=== PATIENT | male | born 1940 | race Caucasian/White ===

== ENCOUNTER 2019-10-31 18:20 | Emergency (ER) | payer OTHER, MEDICARE ==
[2019-10-31 18:35] VITALS: BP 132/70; PULSE 93
--- NOTE | 2019-10-31 19:14 | EDM.PDOC ---
ED HPI GENERAL MEDICAL PROBLEM - General Chief Complaint: Respiratory Problem Stated Complaint: SHORTNESS OF BREATH, HEART RATE HIGH. PER PT Time Seen by Provider: 10/31/19 19:14 Source of Information: Reports: Patient, RN, RN Notes Reviewed History Limitations: Reports: No Limitations - History of Present Illness INITIAL COMMENTS - FREE TEXT/NARRATIVE: Patient presents to ER with complaint of increased shortness of breath, increased cough with white sputum, chest pains on and off, feeling clammy, low blood pressure, and high heart rate. Patient states he was in the [facility] in [place] for testing a few days ago. Patient states he does have a history of COPD and CHF and is on 2 L of oxygen nasal cannula at all times at home. Patient states he has been checking his blood pressure and heart rate with a home monitor, and wonders if those numbers could be falls. Patient does state he has had some nausea but no vomiting, feeling of chills but unsure of fever, states he has had some diarrhea for the past 3 days on and off. Last bowel movement was 2 hours ago and was not loose. Patient denies any known exposure to COVID, but has not been tested and has been in the [facility] in [place]. Onset: Gradual - Related Data Allergies Allergy/AdvReac Type Severity Reaction Status Date / Time morphine Allergy Unknown unknown Verified 06/28/17 11:28 Home Meds: Home Meds Acetaminophen [Tylenol] 650 mg PO Q6H PRN 06/19/14 [History] Albuterol [Proventil Neb Soln] 2 puff INH ASDIRECTED PRN 06/19/14 [History] Aspirin [Halfprin] 81 mg PO DAILY 06/19/14 [History] Furosemide [Lasix] 20 mg PO BID 06/19/14 [History] Isosorbide Mononitrate [Isosorbide Mononitrate ER] 60 mg PO DAILY 06/19/14 [History] Theophylline [Theophylline Anhydrous] 300 mg PO BID 06/19/14 [History] Tiotropium [Spiriva HandiHaler] 18 mcg INH DAILY 06/19/14 [History] atorvaSTATin Calcium [Atorvastatin Calcium] 40 mg PO DAILY 06/19/14 [History] Budesonide/Formoterol Fumarate [Symbicort 160-4.5 Mcg Inhaler] 2 puff INH BID 06/28/17 [History] Latanoprost [Xalatan 0.005% Ophth Soln] 1 drop EYEBOTH BEDTIME 06/28/17 [History] Melatonin 2 cap PO BEDTIME 06/28/17 [History] polyethylene glycoL 3350 [Polyethylene Glycol 3350] 1 tsp PO DAILY PRN 06/28/17 [History] Past Medical History Cardiovascular History: Reports: Heart Failure, High Cholesterol, Hypertension Respiratory History: Reports: COPD Social & Family History - Family History Family Medical History: Noncontributory - Tobacco Use Smoking Status *Q: Current Some Day Smoker Years of Tobacco use: 40 Packs/Tins Daily: 1 Used Tobacco, but Quit: Yes Month/Year Tobacco Last Used: 2009 - Caffeine Use Caffeine Use: Reports: Coffee - Recreational Drug Use Recreational Drug Use: No ED ROS GENERAL - Review of Systems Review Of Systems: Comprehensive ROS is negative, except as noted in HPI. ED EXAM, GENERAL - Physical Exam Exam: See Below Exam Limited By: No Limitations General Appearance: Alert, WD/WN, No Apparent Distress Eye Exam: Bilateral Eye: EOMI, Normal Inspection Ears: Normal External Exam, Hearing Grossly Normal Nose: Normal Inspection Throat/Mouth: Normal Inspection, Normal Voice, No Airway Compromise Head: Atraumatic, Normocephalic Neck: Normal Inspection, Supple, Non-Tender, Full Range of Motion Respiratory/Chest: No Respiratory Distress, Decreased Breath Sounds (throughout), Crackles (bases bilaterally) Cardiovascular: Normal Peripheral Pulses, Regular Rate, Rhythm, No Edema, No Gallop, No JVD, No Murmur, No Rub. No: Tachycardia Peripheral Pulses: 2+: Radial (L), Radial (R) GI/Abdominal: Normal Bowel Sounds, Soft, No Organomegaly, No Distention, No Abnormal Bruit, No Mass, Pelvis Stable, Tender (diffuse) (Male) Exam: Deferred Rectal (Males) Exam: Deferred Back Exam: Normal Inspection, Full Range of Motion, NT Extremities: Normal Inspection, Normal Range of Motion, Non-Tender, Normal Capillary Refill, No Pedal Edema Neurological: Alert, Oriented, CN II-XII Intact, Normal Cognition, Normal Gait, Normal Reflexes, No Motor/Sensory Deficits Psychiatric: Normal Affect, Normal Mood Skin Exam: Warm, Dry, Intact, Normal Color, No Rash Lymphatic: No Adenopathy Course - Vital Signs Last Recorded V/S: Last Vital Signs Temp 97.9 F 08/12/20 18:30 Pulse 93 10/31/19 18:30 Resp 18 10/31/19 18:30 BP 132/70 10/31/19 18:30 Pulse Ox 99 10/31/19 18:30 - Orders/Labs/Meds Orders: Active Orders 24 hr Category Date Time Status EKG Documentation Completion [RC] STAT Care 10/31/19 19:08 Active CULTURE BLOOD [BC] Stat Lab 10/31/19 19:26 Received CULTURE BLOOD [BC] Stat Lab 10/31/19 19:30 Received Blood Culture x2 Reflex Set [OM.PC] Stat Oth 10/31/19 19:12 Ordered Labs: Laboratory Tests 10/31/19 10/31/19 10/31/19 Range/Units 19:26 19:26 19:26 WBC 7.4 (5.0-10.0) 10^3/uL RBC 4.63 (4.6-6.2) 10^6/uL Hgb 13.1 L D (14.0-18.0) g/dL Hct 39.4 L (40.0-54.0) % MCV 85.1 (80-100) fL MCH 28.3 (27.0-34.0) pg MCHC 33.2 (33.0-35.0) g/dL Plt Count 213 (150-450) 10^3/uL Neut % (Auto) 61.4 (42.2-75.2) % Lymph % (Auto) 25.1 (20.5-50.1) % [place] % (Auto) 10.7 H (2-8) % Eos % (Auto) 2.7 (1.0-3.0) % Baso % (Auto) 0.1 (0.0-1.0) % Sodium 140 (136-145) mmol/L Potassium 3.9 (3.5-5.1) mmol/L Chloride 100 (98-107) mmol/L Carbon Dioxide 36 H (21-32) mmol/L Anion Gap 7.9 (7-13) mEq/L BUN 22 H (7-18) mg/dL Creatinine 1.19 (0.70-1.30) mg/dL Est Cr Clr Drug Dosing 52.82 mL/min Estimated GFR (MDRD) 59 BUN/Creatinine Ratio 18.5 (No establ ref range) Glucose 100 H (74-99) mg/dL Lactic Acid 1.1 (0.4-2.0) mmol/L Calcium 9.4 (8.5-10.1) mg/dL Total Bilirubin 0.6 (0.2-1.0) mg/dL AST 22 (15-37) U/L ALT 21 (16-63) U/L Alkaline Phosphatase 101 (46-116) U/L Troponin I 0.022 (0.000-0.056) ng/mL B-Natriuretic Peptide 11 (0-100) pg/ml Total Protein 7.0 (6.4-8.2) g/dL Albumin 3.6 (3.4-5.0) g/dL Globulin 3.4 Albumin/Globulin Ratio 1.1 Urine Color (YELLOW) Urine Appearance (CLEAR) Urine pH (5.0-9.0) Ur Specific [place] (1.005-1.030) Urine Protein (NEGATIVE) Urine Glucose (UA) (NEGATIVE) Urine Ketones (NEGATIVE) Urine Occult Blood (NEGATIVE) Urine Nitrite (NEGATIVE) Urine Bilirubin (NEGATIVE) Urine Urobilinogen (0.2-1.0) mg/dL Ur Leukocyte Esterase (NEGATIVE) 10/31/19 Range/Units 20:29 WBC (5.0-10.0) 10^3/uL RBC (4.6-6.2) 10^6/uL Hgb (14.0-18.0) g/dL Hct (40.0-54.0) % MCV (80-100) fL MCH (27.0-34.0) pg MCHC (33.0-35.0) g/dL Plt Count (150-450) 10^3/uL Neut % (Auto) (42.2-75.2) % Lymph % (Auto) (20.5-50.1) % [place] % (Auto) (2-8) % Eos % (Auto) (1.0-3.0) % Baso % (Auto) (0.0-1.0) % Sodium (136-145) mmol/L Potassium (3.5-5.1) mmol/L Chloride (98-107) mmol/L Carbon Dioxide (21-32) mmol/L Anion Gap (7-13) mEq/L BUN (7-18) mg/dL Creatinine (0.70-1.30) mg/dL Est Cr Clr Drug Dosing mL/min Estimated GFR (MDRD) BUN/Creatinine Ratio (No establ ref range) Glucose (74-99) mg/dL Lactic Acid (0.4-2.0) mmol/L Calcium (8.5-10.1) mg/dL Total Bilirubin (0.2-1.0) mg/dL AST (15-37) U/L ALT (16-63) U/L Alkaline Phosphatase (46-116) U/L Troponin I (0.000-0.056) ng/mL B-Natriuretic Peptide (0-100) pg/ml Total Protein (6.4-8.2) g/dL Albumin (3.4-5.0) g/dL Globulin Albumin/Globulin Ratio Urine Color Yellow (YELLOW) Urine Appearance Slightly cloudy (CLEAR) Urine pH 6.0 (5.0-9.0) Ur Specific [place] 1.025 (1.005-1.030) Urine Protein Negative (NEGATIVE) Urine Glucose (UA) Negative (NEGATIVE) Urine Ketones Negative (NEGATIVE) Urine Occult Blood Negative (NEGATIVE) Urine Nitrite Negative (NEGATIVE) Urine Bilirubin Negative (NEGATIVE) Urine Urobilinogen 1.0 (0.2-1.0) mg/dL Ur Leukocyte Esterase Negative (NEGATIVE) - Radiology Interpretation Free Text/Narrative:: chest xray: PROCEDURE INFORMATION: Exam: XR Chest, 1 View Exam date and time: 10/31/2019 7:23 PM Age: 79 years old Clinical indication: Chest pain; Type not specified TECHNIQUE: Imaging protocol: XR of the chest Views: 1 view. COMPARISON: CR Chest 2V 05/13/2017 9:31 AM FINDINGS: Lungs: There are hazy ill-defined opacities in the lung bases but these may be chronic and due to superimposition of soft tissues as the appears similar to the prior exam. Pleural space: There are no pleural effusions present. Heart/Mediastinum: The heart is not enlarged. The pulmonary arteries are not enlarged. Bones/joints: Unremarkable IMPRESSION: Stable appearing ill-defined hazy opacities in the lung bases likely representing superimposition of shadows. Thank you for allowing us to participate in the care of your patient. Dictated and Authenticated by: Shahriar Kuhn MD 10/31/2019 7:35 PM Central Time ([place] & [place]) See rad report Departure - Departure Time of Disposition: 20:52 Disposition: Home, Self-Care 01 Condition: Fair Clinical Impression: Congestive heart failure Qualifiers: Heart failure type: systolic Heart failure chronicity: chronic Qualified Code (s): I50.22 - Chronic systolic (congestive) heart failure COPD (chronic obstructive pulmonary disease) Qualifiers: COPD type: unspecified COPD Qualified Code(s): J44.9 - Chronic obstructive pulmonary disease, unspecified - Discharge Information *PRESCRIPTION DRUG MONITORING PROGRAM REVIEWED*: No *COPY OF PRESCRIPTION DRUG MONITORING REPORT IN PATIENT SHMUEL: No Instructions: Heart Failure, Self Care, [id number], Eating Plan for Chronic Obstructive Pulmonary Disease Forms: ED Department Discharge Additional Instructions: Monitor Blood pressure and heart rate on your monitor at home If dizzy, sit down. Rise slowly to get your stability Call the [place] clinic tomorrow to discuss a change in your Blood pressure medications Follow up with the [place] Sepsis Event Note (ED) - Evaluation Sepsis Screening Result: No Definite Risk - Focused Exam Vital Signs: Vital Signs Temp Pulse Resp BP Pulse Ox 10/31/19 18:30 97.9 F 93 18 132/70 99 - My Orders Last 24 Hours: My Active Orders 10/31/19 19:08 EKG Documentation Completion [RC] STAT 10/31/19 19:12 Blood Culture x2 Reflex Set [OM.PC] Stat 10/31/19 19:26 CULTURE BLOOD [BC] Stat 10/31/19 19:30 CULTURE BLOOD [BC] Stat - Assessment/Plan Last 24 Hours: My Active Orders 10/31/19 19:08 EKG Documentation Completion [RC] STAT 10/31/19 19:12 Blood Culture x2 Reflex Set [OM.PC] Stat 10/31/19 19:26 CULTURE BLOOD [BC] Stat 10/31/19 19:30 CULTURE BLOOD [BC] Stat
--- NOTE | 2019-10-31 19:35 | CR ---
PROCEDURE INFORMATION: Exam: XR Chest, 1 View Exam date and time: 10/31/2019 7:23 PM Age: 79 years old Clinical indication: Chest pain; Type not specified TECHNIQUE: Imaging protocol: XR of the chest Views: 1 view. COMPARISON: CR Chest 2V 05/13/2017 9:31 AM FINDINGS: Lungs: There are hazy ill-defined opacities in the lung bases but these may be chronic and due to superimposition of soft tissues as the appears similar to the prior exam. Pleural space: There are no pleural effusions present. Heart/Mediastinum: The heart is not enlarged. The pulmonary arteries are not enlarged. Bones/joints: Unremarkable IMPRESSION: Stable appearing ill-defined hazy opacities in the lung bases likely representing superimposition of shadows.
[2019-10-31 19:57] LABS: ANION GAP 7.9 mEq/L (7-13)
== END 2019-10-31 20:55 | disposition home or self-care (01) ==
LOC: DL.ED 18:20
DX: I11.0 Hypertensive heart disease with heart failure (principal); I50.22 Chronic systolic (congestive) heart failure; J44.9 Chronic obstructive pulmonary disease, unspecified; E78.00 Pure hypercholesterolemia, unspecified; F17.210 Nicotine dependence, cigarettes, uncomplicated; Z79.82 Long term (current) use of aspirin; Z79.899 Other long term (current) drug therapy; Z88.5 Allergy status to narcotic agent
CPT/HCPCS: 36415; 71045; 80053; 81003; 83605; 83880; 84484; 85025; 87040; 93005; 99285-25

== ENCOUNTER 2019-11-06 16:18 | Emergency (ER) | payer OTHER, MEDICARE ==
[2019-11-06 16:35] VITALS: BP 132/46; PULSE 56
--- NOTE | 2019-11-06 17:03 | EDM.PDOC ---
ED HPI GENERAL MEDICAL PROBLEM - General Chief Complaint: Gastrointestinal Problem Stated Complaint: UPSET [facility] HOME NURSE RECOMENDED ER VISIT Time Seen by Provider: 11/06/19 16:45 Source of Information: Reports: Patient History Limitations: Reports: No Limitations - History of Present Illness INITIAL COMMENTS - FREE TEXT/NARRATIVE: This 79 yo male patient reports to the ED with diffuse abdominal pain, nausea, lack of appetite and dark stools. The patient reports he has been nauseated for the past week and had a reduced appetite over the past week. The patient reports the dark stools have been for the past 2 days. The patient reports [facility] has not followed-up since his last visit in the ED. Duration: Week(s):, Constant, Getting Worse Location: Reports: Abdomen Quality: Reports: Other Severity: Moderate Improves with: Reports: None Worsens with: Reports: None Context: Reports: Other Associated Symptoms: Reports: Nausea/Vomiting, Other (Dark stools) - Related Data Allergies Allergy/AdvReac Type Severity Reaction Status Date / Time morphine Allergy Unknown unknown Verified 11/06/19 16:27 Home Meds: Home Meds Acetaminophen [Tylenol] 650 mg PO Q6H PRN 06/19/14 [History] Albuterol [Proventil Neb Soln] 2 puff INH ASDIRECTED PRN 06/19/14 [History] Aspirin [Halfprin] 81 mg PO DAILY 06/19/14 [History] Furosemide [Lasix] 20 mg PO ASDIRECTED 06/19/14 [History] Isosorbide Mononitrate [Isosorbide Mononitrate ER] 60 mg PO DAILY 06/19/14 [History] Theophylline [Theophylline Anhydrous] 300 mg PO BID 06/19/14 [History] Tiotropium [Spiriva HandiHaler] 18 mcg INH DAILY 06/19/14 [History] atorvaSTATin Calcium [Atorvastatin Calcium] 40 mg PO DAILY 06/19/14 [History] Budesonide/Formoterol Fumarate [Symbicort 160-4.5 Mcg Inhaler] 2 puff INH BID 06/28/17 [History] Latanoprost [Xalatan 0.005% Ophth Soln] 1 drop EYEBOTH BEDTIME 06/28/17 [History] Melatonin 3 cap PO BEDTIME 06/28/17 [History] Albuterol [Ventolin HFA] 2 puff INH Q6H PRN 11/06/19 [History] Cetirizine HCl [Zyrtec] 5 mg PO DAILY 11/06/19 [History] Doxycycline Hyclate 1 cap PO BID PRN 11/06/19 [History] Sennosides/Docusate Sodium [Docusate Sodium-Sennosides Tab] 1 tab PO BID PRN 11/06/19 [History] predniSONE [Prednisone] 40 mg PO DAILY PRN 11/06/19 [History] traZODone HCl [Trazodone HCl] 50 mg PO BEDTIME 11/06/19 [History] Past Medical History Cardiovascular History: Reports: Heart Failure, High Cholesterol, Hypertension Respiratory History: Reports: COPD Social & Family History - Family History Family Medical History: Noncontributory - Caffeine Use Caffeine Use: Reports: Coffee ED ROS GENERAL - Review of Systems Review Of Systems: Comprehensive ROS is negative, except as noted in HPI. ED EXAM, GI/ABD - Physical Exam Exam: See Below Exam Limited By: No Limitations General Appearance: Alert, WD/WN, Mild Distress Eyes: Bilateral: Normal Appearance, EOMI Ears: Normal External Exam, Normal Canal, Hearing Grossly Normal, Normal TMs Nose: Normal Inspection, Normal Mucosa, No Blood Throat/Mouth: Normal Inspection, Normal Lips, Normal Teeth, Normal Gums, Normal Oropharynx, Normal Voice, No Airway Compromise Head: Atraumatic, Normocephalic Neck: Normal Inspection, Supple, Non-Tender, Full Range of Motion Respiratory/Chest: No Respiratory Distress, Lungs Clear, Normal Breath Sounds, No Accessory Muscle Use, Chest Non-Tender Cardiovascular: Normal Peripheral Pulses, No Edema, No Gallop, No JVD, No Murmur, No Rub, Bradycardia GI/Abdominal Exam: Normal Bowel Sounds, No Organomegaly, No Distention, No Abnormal Bruit, No Mass, Pelvis Stable, Tender (diffuse mild tenderness) (Male) Exam: Deferred Back Exam: Normal Inspection, Full Range of Motion, NT Extremities: Normal Inspection, Normal Range of Motion, Non-Tender, Normal Capillary Refill, No Pedal Edema Neurological: Alert Psychiatric: Normal Affect, Normal Mood Skin Exam: Warm, Dry, Intact, Normal Color, No Rash Lymphatic: No Adenopathy Course - Vital Signs Last Recorded V/S: Last Vital Signs Temp 36.4 C 11/06/19 16:33 Pulse 56 L 08/18/20 16:33 Resp 16 11/06/19 16:33 BP 132/46 L 11/06/19 16:33 Pulse Ox 100 11/06/19 16:33 - Orders/Labs/Meds Orders: Active Orders 24 hr Category Date Time Status EKG Documentation Completion [RC] STAT Care 11/06/19 16:46 Active CULTURE BLOOD [BC] Stat Lab 11/06/19 16:52 Received Labs: Laboratory Tests 11/06/19 11/06/19 11/06/19 Range/Units 16:52 16:52 16:52 WBC 7.4 (5.0-10.0) 10^3/uL RBC 4.31 L (4.6-6.2) 10^6/uL Hgb 12.1 L (14.0-18.0) g/dL Hct 36.3 L (40.0-54.0) % MCV 84.2 (80-100) fL MCH 28.1 (27.0-34.0) pg MCHC 33.3 (33.0-35.0) g/dL Plt Count 213 (150-450) 10^3/uL Neut % (Auto) 59.4 (42.2-75.2) % Lymph % (Auto) 28.8 (20.5-50.1) % [place] % (Auto) 9.4 H (2-8) % Eos % (Auto) 2.3 (1.0-3.0) % Baso % (Auto) 0.1 (0.0-1.0) % Sodium 139 (136-145) mmol/L Potassium 3.5 (3.5-5.1) mmol/L Chloride 100 (98-107) mmol/L Carbon Dioxide 32 (21-32) mmol/L Anion Gap 10.5 (7-13) mEq/L BUN 21 H (7-18) mg/dL Creatinine 1.18 (0.70-1.30) mg/dL Est Cr Clr Drug Dosing 53.27 mL/min Estimated GFR (MDRD) 60 BUN/Creatinine Ratio 17.8 (No establ ref range) Glucose 86 (74-99) mg/dL Lactic Acid 1.6 (0.4-2.0) mmol/L Calcium 8.6 (8.5-10.1) mg/dL Total Bilirubin 0.8 (0.2-1.0) mg/dL AST 19 (15-37) U/L ALT 16 (16-63) U/L Alkaline Phosphatase 96 (46-116) U/L Troponin I < 0.017 (0.000-0.056) ng/mL Total Protein 6.5 (6.4-8.2) g/dL Albumin 3.3 L (3.4-5.0) g/dL Globulin 3.2 Albumin/Globulin Ratio 1.03 Meds: Medications Discontinued Medications Generic Name Dose Route Start Last Admin Trade Name Freq PRN Reason Stop Dose Admin Iopamidol 100 ml 11/06/19 17:38 11/06/19 18:12 Isovue-300 (61%) IVPUSH 11/06/19 17:39 75 ml ONETIME ONE Administration Departure - Departure Time of Disposition: 18:37 Disposition: Home, Self-Care 01 Condition: Fair Clinical Impression: Gastroenteritis - Discharge Information *PRESCRIPTION DRUG MONITORING PROGRAM REVIEWED*: Not Applicable *COPY OF PRESCRIPTION DRUG MONITORING REPORT IN PATIENT SHMUEL: Not Applicable Instructions: Viral Gastroenteritis, Adult, [id number] Forms: ED Department Discharge Care Plan Goals: The patient was advised of the examination, CT and lab results during the visit. The patient was encouraged to stick to a BRAT diet (bananas, rice, applesauce and toast) with small frequent sips of fluid. If the patient has any additional symptoms or concerns, the patient should either return to the emergency department or follow-up with his primary care facility. Sepsis Event Note (ED) - Evaluation Sepsis Screening Result: No Definite Risk - Focused Exam Vital Signs: Vital Signs Temp Pulse Resp BP Pulse Ox 11/06/19 16:33 36.4 C 56 L 16 132/46 L 100 - My Orders Last 24 Hours: My Active Orders 11/06/19 16:46 EKG Documentation Completion [RC] STAT 11/06/19 16:52 CULTURE BLOOD [BC] Stat - Assessment/Plan Last 24 Hours: My Active Orders 11/06/19 16:46 EKG Documentation Completion [RC] STAT 11/06/19 16:52 CULTURE BLOOD [BC] Stat
[2019-11-06 17:26] LABS: ANION GAP 10.5 mEq/L (7-13); CHLORIDE,CL 100 mmol/L (98-107); SODIUM,NA 139 mmol/L (136-145)
[2019-11-06] MEDS ORDERED: Iopamidol 612 MG/ML 100 ML Bottle IVPUSH ONE (17:38)
--- NOTE | 2019-11-06 18:19 | CT ---
PROCEDURE INFORMATION: Exam: CT Abdomen And Pelvis With Contrast Exam date and time: 11/06/2019 5:53 PM Age: 79 years old Clinical indication: Abdominal pain; Additional info: Abdominal pain, loss of appetite TECHNIQUE: Imaging protocol: Computed tomography of the abdomen and pelvis with intravenous contrast. Radiation optimization: All CT scans at this facility use at least one of these dose optimization techniques: automated exposure control; mA and/or kV adjustment per patient size (includes targeted exams where dose is matched to clinical indication); or iterative reconstruction. Contrast material: [id number]; Contrast volume: 75 ml; Contrast route: INTRAVENOUS (IV); COMPARISON: No relevant prior studies available. FINDINGS: Liver: Normal. No mass. Gallbladder and bile ducts: Normal. No calcified stones. No ductal dilation. Pancreas: Normal. No ductal dilation. Spleen: Normal. No splenomegaly. Adrenals: Normal. No mass. Kidneys and ureters: Bilateral renal cysts are present, requiring no further evaluation, as large as 2.9 cm. Nonobstructing renal calcifications present bilaterally. Stomach and bowel: Mild diverticulosis is present in the distal colon. Appendix: No evidence of appendicitis. Intraperitoneal space: Normal. No significant fluid collection. Vasculature: The vasculature demonstrates diffuse mild atherosclerotic calcification. Lymph nodes: Unremarkable. No enlarged lymph nodes. Bladder: Small calcifications noted within the inferior aspect of the bladder on the right. There is mild bladder wall thickening consistent with incomplete distension, chronic outflow obstruction, or cystitis. Reproductive: The prostate demonstrates mild nonspecific enlargement. The seminal vesicles are normal. Bones/joints: The lumbar spine demonstrates mild degenerative changes at multiple levels. Soft tissues: There is a fat-containing umbilical hernia. IMPRESSION: 1. Small calcifications noted within the inferior aspect of the bladder on the right. 2. There is mild bladder wall thickening consistent with incomplete distension, chronic outflow obstruction, or cystitis. 3. Mild diverticulosis is present in the distal colon. 4. Bilateral renal cysts are present, requiring no further evaluation, as large as 2.9 cm.
== END 2019-11-06 18:48 | disposition home or self-care (01) ==
LOC: DL.ED 16:18
DX: K52.9 Noninfective gastroenteritis and colitis, unspecified (principal); I11.0 Hypertensive heart disease with heart failure; I50.9 Heart failure, unspecified; E78.00 Pure hypercholesterolemia, unspecified; J44.9 Chronic obstructive pulmonary disease, unspecified; Z79.82 Long term (current) use of aspirin; Z79.899 Other long term (current) drug therapy; Z88.5 Allergy status to narcotic agent
CPT/HCPCS: 36415; 74177; 80053; 82272; 83605; 84484; 85025; 87040; 93005; 99284; Q9967

== ENCOUNTER 2020-02-20 14:21 | Emergency (ER) | payer OTHER, MEDICARE ==
[2020-02-20 14:39] VITALS: BP 141/58; PULSE 58
--- NOTE | 2020-02-20 14:50 | EDM.PDOC ---
ED HPI GENERAL MEDICAL PROBLEM - General Chief Complaint: Respiratory Problem Stated Complaint: RESPITORY PROBLEMS Time Seen by Provider: 02/20/20 14:40 Source of Information: Reports: Patient, RN, RN Notes Reviewed History Limitations: Reports: No Limitations - History of Present Illness INITIAL COMMENTS - FREE TEXT/NARRATIVE: Patient presents to the ED from the [facility] with complaints of worsening shortness of breath. The patient does report a history of COPD and is on 2L of O2 via NC at baseline. He is not requiring an increase in his O2 requirements. He is currently on a pulmonary burst of Prednisone 40mg via his primary care provider for a COPD exacerbation, he is on day four. He denies a history of COVID infection or close contact with an individual with a known active COVID infection. He denies fever, shaking chills, headache, chest pain/pressure, palpitations, dyspepsia, nausea, vomiting, diarrhea, or abdominal pain. He is a former smoker with a quit date in 2009. He denies alcohol or recreational drug use. - Related Data Allergies Allergy/AdvReac Type Severity Reaction Status Date / Time morphine Allergy Unknown unknown Verified 11/06/19 16:27 Home Meds: Home Meds Acetaminophen [Tylenol] 650 mg PO Q6H PRN 06/19/14 [History] Albuterol [Proventil Neb Soln] 2 puff INH ASDIRECTED PRN 06/19/14 [History] Aspirin [Halfprin] 81 mg PO DAILY 06/19/14 [History] Furosemide [Lasix] 20 mg PO ASDIRECTED 06/19/14 [History] Isosorbide Mononitrate [Isosorbide Mononitrate ER] 60 mg PO DAILY 06/19/14 [History] Theophylline [Theophylline Anhydrous] 300 mg PO BID 06/19/14 [History] Tiotropium [Spiriva HandiHaler] 18 mcg INH DAILY 06/19/14 [History] atorvaSTATin Calcium [Atorvastatin Calcium] 40 mg PO DAILY 06/19/14 [History] Budesonide/Formoterol Fumarate [Symbicort 160-4.5 Mcg Inhaler] 2 puff INH BID 06/28/17 [History] Latanoprost [Xalatan 0.005% Ophth Soln] 1 drop EYEBOTH BEDTIME 06/28/17 [History] Melatonin 3 cap PO BEDTIME 04/10/18 [History] Albuterol [Ventolin HFA] 2 puff INH Q6H PRN 11/06/19 [History] Cetirizine HCl [Zyrtec] 5 mg PO DAILY 11/06/19 [History] Doxycycline Hyclate 1 cap PO BID PRN 11/06/19 [History] Sennosides/Docusate Sodium [Docusate Sodium-Sennosides Tab] 1 tab PO BID PRN 11/06/19 [History] predniSONE [Prednisone] 40 mg PO DAILY PRN 11/06/19 [History] traZODone HCl [Trazodone HCl] 50 mg PO BEDTIME 11/06/19 [History] Past Medical History HEENT History: Reports: Impaired Vision Other HEENT History: wears glasses Cardiovascular History: Reports: Heart Failure, High Cholesterol, Hypertension Respiratory History: Reports: COPD Other Respiratory History: Home O2 Social & Family History - Family History Family Medical History: No Pertinent Family History - Tobacco Use Tobacco Use Status *Q: Former Tobacco User Used Tobacco, but Quit: Yes Month/Year Tobacco Last Used: 2009 - Caffeine Use Caffeine Use: Reports: Coffee - Recreational Drug Use Recreational Drug Use: No ED ROS GENERAL - Review of Systems Review Of Systems: Comprehensive ROS is negative, except as noted in HPI. ED EXAM, GENERAL - Physical Exam Exam: See Below Exam Limited By: No Limitations General Appearance: Alert, WD/WN, No Apparent Distress Eye Exam: Bilateral Eye: EOMI, Normal Inspection, PERRL Nose: Normal Inspection, Normal Mucosa. No: Nasal Tenderness, Nasal Swelling, Nasal Drainage Throat/Mouth: Normal Inspection, Normal Lips, Normal Voice, No Airway Compromise. No: Normal Oropharynx (Dry mucous membranes) Head: Atraumatic, Normocephalic Neck: Normal Inspection, Supple, Non-Tender, Full Range of Motion. No: Lymphadenopathy (L), Lymphadenopathy (R) Respiratory/Chest: Normal Breath Sounds, Chest Non-Tender, Rhonchi (Throughout), Wheezing (Inspiratory and expiratory to bilateral upper lobes), Accessory Muscle Use Cardiovascular: No Edema, No Gallop, No JVD, No Murmur, No Rub, Bradycardia Peripheral Pulses: 2+: Radial (L), Radial (R), Dorsalis Pedis (L), Dorsalis Pedis (R) GI/Abdominal: Normal Bowel Sounds, Soft, Non-Tender, No Distention, No Mass, Pelvis Stable (Male) Exam: Deferred Rectal (Males) Exam: Deferred Back Exam: Normal Inspection, Full Range of Motion. No: CVA Tenderness (L), CVA Tenderness (R) Extremities: Normal Inspection, Normal Range of Motion, Non-Tender, No Pedal Edema, Normal Capillary Refill. No: Mottled, Pallor Neurological: Alert, Oriented, CN II-XII Intact, Normal Cognition, Normal Gait, No Motor/Sensory Deficits Psychiatric: Normal Affect, Normal Mood Skin Exam: Warm, Dry, Intact, Normal Color, No Rash. No: Ecchymosis, Erythema, Mottled, Pallor, Petechiae #1 Interpretation EKG Date: 02/21/20 Time: 15:20 Rhythm: Other (Sinus Nacho) Rate (Beats/Min): 49 [place]: Normal P-Wave: Present QRS: Normal ST-T: Normal QT: Normal Comparison: No Change EKG Interpretation Comments: Sinus Bradycardia Course - Vital Signs Last Recorded V/S: Last Vital Signs Temp 97.6 F 02/20/20 14:30 Pulse 58 L 02/20/20 14:30 Resp 18 02/20/20 14:30 BP 141/58 H 02/20/20 14:30 Pulse Ox 99 02/20/20 14:30 - Orders/Labs/Meds Labs: Laboratory Tests 02/20/20 02/20/20 02/20/20 Range/Units 15:37 15:37 15:37 WBC 11.5 H (5.0-10.0) 10^3/uL RBC 4.46 L (4.6-6.2) 10^6/uL Hgb 12.7 L (14.0-18.0) g/dL Hct 40.3 (40.0-54.0) % MCV 90.4 D (80-100) fL MCH 28.5 (27.0-34.0) pg MCHC 31.5 L (33.0-35.0) g/dL Plt Count 175 (150-450) 10^3/uL Neut % (Auto) 85.7 H (42.2-75.2) % Lymph % (Auto) 11.4 L (20.5-50.1) % [place] % (Auto) 2.1 (2-8) % Eos % (Auto) 0.7 L (1.0-3.0) % Baso % (Auto) 0.1 (0.0-1.0) % Sodium 144 (136-145) mmol/L Potassium 4.3 (3.5-5.1) mmol/L Chloride 103 (98-107) mmol/L Carbon Dioxide 38 H (21-32) mmol/L Anion Gap 7.3 (7-13) mEq/L BUN 20 H (7-18) mg/dL Creatinine 0.97 (0.70-1.30) mg/dL Est Cr Clr Drug Dosing 62.76 mL/min Estimated GFR (MDRD) > 60 BUN/Creatinine Ratio 20.6 (No establ ref range) Glucose 125 H (74-99) mg/dL Lactic Acid 1.4 (0.4-2.0) mmol/L Calcium 8.9 (8.5-10.1) mg/dL Total Bilirubin 0.3 (0.2-1.0) mg/dL AST 34 (15-37) U/L ALT 46 (16-63) U/L Alkaline Phosphatase 71 (46-116) U/L Troponin I 0.024 (0.000-0.056) ng/mL B-Natriuretic Peptide 72 (0-100) pg/ml Total Protein 6.4 (6.4-8.2) g/dL Albumin 3.3 L (3.4-5.0) g/dL Globulin 3.1 Albumin/Globulin Ratio 1.06 SARS CoV-2 RNA Rapid BG (NEGATIVE) 02/20/20 Range/Units 15:41 WBC (5.0-10.0) 10^3/uL RBC (4.6-6.2) 10^6/uL Hgb (14.0-18.0) g/dL Hct (40.0-54.0) % MCV (80-100) fL MCH (27.0-34.0) pg MCHC (33.0-35.0) g/dL Plt Count (150-450) 10^3/uL Neut % (Auto) (42.2-75.2) % Lymph % (Auto) (20.5-50.1) % [place] % (Auto) (2-8) % Eos % (Auto) (1.0-3.0) % Baso % (Auto) (0.0-1.0) % Sodium (136-145) mmol/L Potassium (3.5-5.1) mmol/L Chloride (98-107) mmol/L Carbon Dioxide (21-32) mmol/L Anion Gap (7-13) mEq/L BUN (7-18) mg/dL Creatinine (0.70-1.30) mg/dL Est Cr Clr Drug Dosing mL/min Estimated GFR (MDRD) BUN/Creatinine Ratio (No establ ref range) Glucose (74-99) mg/dL Lactic Acid (0.4-2.0) mmol/L Calcium (8.5-10.1) mg/dL Total Bilirubin (0.2-1.0) mg/dL AST (15-37) U/L ALT (16-63) U/L Alkaline Phosphatase (46-116) U/L Troponin I (0.000-0.056) ng/mL B-Natriuretic Peptide (0-100) pg/ml Total Protein (6.4-8.2) g/dL Albumin (3.4-5.0) g/dL Globulin Albumin/Globulin Ratio SARS CoV-2 RNA Rapid BG Negative (NEGATIVE) Meds: Medications Discontinued Medications Generic Name Dose Route Start Last Admin Trade Name Freq PRN Reason Stop Dose Admin Levofloxacin 500 mg 02/20/20 17:19 02/20/20 17:24 Levaquin PO 02/20/20 17:20 500 mg ONETIME ONE Administration - Re-Assessments/Exams Free Text/Narrative Re-Assessment/Exam: 02/20/20 COVID screen is negative today. CXR reveals COPD with no signs of pneumonia. WBC slightly elevated at 11.5 Will continue to treat COPD exacerbation with previously prescribed Prednisone 40mg; will start patient of Levaquin 500mg x5 days. Patient given first dose here today. Patient instructed to follow up with primary care provider in 3-5 days, or with continued worsening shortness of breath or chest pain. Patient verbalized understanding and agreement with the plan of care. Departure - Departure Time of Disposition: 17:19 Disposition: Home, Self-Care 01 Condition: Good Clinical Impression: COPD exacerbation - Discharge Information *PRESCRIPTION DRUG MONITORING PROGRAM REVIEWED*: Not Applicable *COPY OF PRESCRIPTION DRUG MONITORING REPORT IN PATIENT SHMUEL: Not Applicable Instructions: Chronic Obstructive Pulmonary Disease, [id number] Referrals: PCP,Unobpepito [Primary Care Provider] - Forms: ED Department Discharge Additional Instructions: Rx: Levaquin Take all of your antibiotic until it is gone. Follow up with your primary care provider in 3-5 days, or sooner with any worsening shortness of breath or chest pain. Sepsis Event Note (ED) - Evaluation Sepsis Screening Result: No Definite Risk
[2020-02-20 16:17] LABS: ANION GAP 7.3 mEq/L (7-13); CHLORIDE,CL 103 mmol/L (98-107); SODIUM,NA 144 mmol/L (136-145)
--- NOTE | 2020-02-20 16:37 | CR ---
EXAMINATION: Chest 2V SEX: Male AGE: 79 years CLINICAL HISTORY: 79-year-old male with COPD, elevated WBC, and now "worsening" shortness of breath. Comparison chest film 31 October 2019. Interpretation: 1. Restrictive airway disease with severe flattening of the hemidiaphragms and prominent proximal pulmonary artery segments. No discrete cystic or bullous lesions. 2. 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 3. Normal cardiac silhouette. No new pulmonary vascular congestion, cephalization of flow, alveolar edema or dependent pleural fluid accumulation (effusions). Dense atheromatous calcifications arch aorta. 4. No new lung mass, hilar lymphadenopathy or focal lobar infiltrate/atelectasis. 5. No focal lobar pneumonia or peripheral "groundglass" lung densities. CONCLUSION: COPD. No acute new cardiopulmonary abnormality.
[2020-02-20] MEDS ORDERED: Levofloxacin 500 MG Tab PO ONE (17:19)
== END 2020-02-20 17:29 | disposition home or self-care (01) ==
LOC: DL.ED 14:21
DX: J44.1 Chronic obstructive pulmonary disease with (acute) exacerbation (principal); R00.1 Bradycardia, unspecified; I11.0 Hypertensive heart disease with heart failure; I50.9 Heart failure, unspecified; E78.00 Pure hypercholesterolemia, unspecified; Z87.891 Personal history of nicotine dependence; Z20.828 Contact with and (suspected) exposure to other viral communicable diseases; Z88.5 Allergy status to narcotic agent; Z79.82 Long term (current) use of aspirin; Z79.899 Other long term (current) drug therapy
CPT/HCPCS: 36415; 71046; 80053; 83605; 83880; 84484; 85025; 93005; 99285-25; A9270-GY; U0002

== ENCOUNTER 2020-03-02 15:54 | Emergency (ER) | payer OTHER, MEDICARE ==
[2020-03-02 16:34] LABS: ANION GAP 0.9 mEq/L (7-13); CHLORIDE,CL 100 mmol/L (98-107); SODIUM,NA 140 mmol/L (136-145)
--- NOTE | 2020-03-02 16:38 | CR ---
PROCEDURE INFORMATION: Exam: XR Chest, 1 View Exam date and time: 03/02/2020 4:30 PM Age: 79 years old Clinical indication: Other: Chest pain TECHNIQUE: Imaging protocol: XR of the chest Views: 1 view. COMPARISON: CR Chest 2V 02/20/2020 4:12 PM FINDINGS: Lungs: There is mild increase in interstitial markings within the lungs. This is nonspecific. No pneumonia or pulmonary edema is present. Pleural space: Small bilateral pleural effusions are present. There is no pneumothorax. Heart/Mediastinum: Unremarkable. No cardiomegaly. Bones/joints: Unremarkable. IMPRESSION: Chronic appearing interstitial change with small bilateral pleural effusions no definite pneumonia or pulmonary edema.
--- NOTE | 2020-03-02 17:12 | EDM.PDOC ---
Scribed by Elzbieta Ortega 03/02/20 1712 for Darline Fam NP <Darline Fam - Last Filed: 03/03/20 09:53> ED HPI GENERAL MEDICAL PROBLEM - General Chief Complaint: Chest Pain Stated Complaint: CHEST PAINS Time Seen by Provider: 03/02/20 16:40 Source of Information: Reports: Patient, RN, RN Notes Reviewed History Limitations: Reports: No Limitations - History of Present Illness INITIAL COMMENTS - FREE TEXT/NARRATIVE: Patient is a 79-year-old male who presents to the ER with complaint of chest pain. Patient was seen in the ER on February 20, 2020 with increased shortness of breath. States he is on 3 liter nasal cannula at baseline. At last [facility] visit patient was COVID negative. Patient states pain has been intermittent today. He has not had pain for over an hour. It started about 10 A.M. today--several episodes today. History of COPD. He has positive chills. No fever. 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 Onset: Today Duration: Constant Location: Reports: Chest Quality: Reports: Ache Severity: Moderate Improves with: Reports: None Worsens with: Reports: None Associated Symptoms: Reports: No Other Symptoms - Related Data Allergies Allergy/AdvReac Type Severity Reaction Status Date / Time morphine Allergy Unknown unknown Verified 11/06/19 16:27 Home Meds: Home Meds Acetaminophen [Tylenol] 650 mg PO Q6H PRN 06/19/14 [History] Albuterol [Proventil Neb Soln] 2 puff INH ASDIRECTED PRN 06/19/14 [History] Aspirin [Halfprin] 81 mg PO DAILY 06/19/14 [History] Furosemide [Lasix] 20 mg PO ASDIRECTED 06/19/14 [History] Theophylline [Theophylline Anhydrous] 300 mg PO BID 06/19/14 [History] Tiotropium [Spiriva HandiHaler] 18 mcg INH DAILY 06/19/14 [History] atorvaSTATin Calcium [Atorvastatin Calcium] 40 mg PO BEDTIME 06/19/14 [History] Budesonide/Formoterol Fumarate [Symbicort 160-4.5 Mcg Inhaler] 2 puff INH BID 06/28/17 [History] Latanoprost [Xalatan 0.005% Ophth Soln] 1 drop EYEBOTH BEDTIME 06/28/17 [History] Melatonin 3 cap PO BEDTIME 06/28/17 [History] Albuterol [Ventolin HFA] 2 puff INH Q6H PRN 11/06/19 [History] Cetirizine HCl [Zyrtec] 5 mg PO DAILY 11/06/19 [History] Doxycycline Hyclate 1 cap PO BID PRN 11/06/19 [History] Sennosides/Docusate Sodium [Docusate Sodium-Sennosides Tab] 1 tab PO BID PRN 11/06/19 [History] predniSONE [Prednisone] 40 mg PO DAILY PRN 11/06/19 [History] traZODone HCl [Trazodone HCl] 50 mg PO BEDTIME 11/06/19 [History] Past Medical History HEENT History: Reports: Impaired Vision Other HEENT History: wears glasses Cardiovascular History: Reports: Heart Failure, High Cholesterol, Hypertension Respiratory History: Reports: COPD Other Respiratory History: Home O2 Social & Family History - Family History Family Medical History: No Pertinent Family History - Caffeine Use Caffeine Use: Reports: Coffee ED ROS GENERAL - Review of Systems Review Of Systems: Comprehensive ROS is negative, except as noted in HPI. ED EXAM, GENERAL - Physical Exam Exam: See Below Exam Limited By: No Limitations General Appearance: Alert, WD/WN, No Apparent Distress Eye Exam: Bilateral Eye: EOMI, Normal Inspection Ears: Normal External Exam, Hearing Grossly Normal Nose: Normal Inspection Throat/Mouth: Normal Inspection, Normal Voice, No Airway Compromise Head: Atraumatic, Normocephalic Neck: Normal Inspection, Supple, Non-Tender, Full Range of Motion Respiratory/Chest: Decreased Breath Sounds, Crackles (throughout), Other (3L/NC baseline) Cardiovascular: Normal Peripheral Pulses, Regular Rate, Rhythm, No Edema, No Gallop, No JVD, No Murmur, No Rub Peripheral Pulses: 2+: Radial (L), Radial (R) GI/Abdominal: Normal Bowel Sounds, Soft, Non-Tender (Male) Exam: Deferred Rectal (Males) Exam: Deferred Back Exam: Normal Inspection, Full Range of Motion, NT Extremities: Normal Inspection, Normal Range of Motion, Non-Tender, Normal Capillary Refill, No Pedal Edema Neurological: Alert, Oriented, CN II-XII Intact, Normal Cognition, Normal Gait, Normal Reflexes, No Motor/Sensory Deficits Psychiatric: Normal Affect, Normal Mood Skin Exam: Warm, Dry, Intact, Normal Color, No Rash Lymphatic: No Adenopathy Course - Radiology Interpretation Free Text/Narrative:: Chest xray: PROCEDURE INFORMATION: Exam: XR Chest, 1 View Exam date and time: 03/02/2020 4:30 PM Age: 79 years old Clinical indication: Other: Chest pain TECHNIQUE: Imaging protocol: XR of the chest Views: 1 view. COMPARISON: CR Chest 2V 02/20/2020 4:12 PM FINDINGS: Lungs: There is mild increase in interstitial markings within the lungs. This is nonspecific. No pneumonia or pulmonary edema is present. Pleural space: Small bilateral pleural effusions are present. There is no pneumothorax. Heart/Mediastinum: Unremarkable. No cardiomegaly. Bones/joints: Unremarkable. IMPRESSION: Chronic appearing interstitial change with small bilateral pleural effusions no definite pneumonia or pulmonary edema. Thank you for allowing us to participate in the care of your patient. Dictated and Authenticated by: Jatin Gardner MD 03/02/2020 4:38 PM Central Time ([place] & [place]) See rad report - Re-Assessments/Exams Free Text/Narrative Re-Assessment/Exam: 03/02/20 17:08 According to the Adjusted D-Dimer scale, the patient's age and co-morbidity can contribute to an elevated D-Dimer. Patient is 79, his adjusted D-dimer can be as high as 780. Patient will be monitored as an extended ER on the medical floor. He will have recheck Troponin and EKG at 1999. Patient will be discharged at that time as long as everything returns the same. Pt encouraged to follow up with his primary care provider for the chest pain and possible prescription for Nitroglycerin. Departure - Departure Disposition: Home, Self-Care 01 Clinical Impression: COPD (chronic obstructive pulmonary disease) Qualifiers: COPD type: unspecified COPD Qualified Code(s): J44.9 - Chronic obstructive pulmonary disease, unspecified Instructions: Chronic Obstructive Pulmonary Disease Exacerbation, [id number], Nonspecific Chest Pain, Adult, [id number] Referrals: PCP,None [Primary Care Provider] - Forms: ED Department Discharge Additional Instructions: light bland diet clinic recheck this week, urgent follow up if fever, cough difficulty breathing or severe pain continue home medications doxycycline 100mg one twice daily for one week <Ghada Nicholas - Last Filed: 03/05/20 06:38> Course - Vital Signs Last Recorded V/S: Last Vital Signs Temp 98.3 F 03/02/20 20:09 Pulse 57 L 03/02/20 20:09 Resp 20 03/02/20 20:09 BP 97/53 L 03/02/20 20:09 Pulse Ox 100 03/02/20 20:09 - Orders/Labs/Meds Labs: Laboratory Tests 03/02/20 03/02/20 03/02/20 Range/Units 16:06 16:06 16:06 WBC 15.2 H (5.0-10.0) 10^3/uL RBC 4.87 (4.6-6.2) 10^6/uL Hgb 14.0 (14.0-18.0) g/dL Hct 44.5 (40.0-54.0) % MCV 91.4 (80-100) fL MCH 28.7 (27.0-34.0) pg MCHC 31.5 L (33.0-35.0) g/dL Plt Count 150 (150-450) 10^3/uL Neut % (Auto) 78.4 H (42.2-75.2) % Lymph % (Auto) 13.1 L (20.5-50.1) % [place] % (Auto) 7.0 (2-8) % Eos % (Auto) 1.4 (1.0-3.0) % Baso % (Auto) 0.1 (0.0-1.0) % PT 11.0 (9.0-12.0) SEC INR 1.2 (0.9-1.2) D-Dimer, Quantitative 573 H (0-400) ng/mL Sodium 140 (136-145) mmol/L Potassium 3.9 (3.5-5.1) mmol/L Chloride 100 (98-107) mmol/L Carbon Dioxide 43 H* (21-32) mmol/L Anion Gap 0.9 L (7-13) mEq/L BUN 19 H (7-18) mg/dL Creatinine 1.03 (0.70-1.30) mg/dL Est Cr Clr Drug Dosing 61.03 mL/min Estimated GFR (MDRD) > 60 BUN/Creatinine Ratio 18.4 (No establ ref range) Glucose 136 H (74-99) mg/dL Calcium 9.2 (8.5-10.1) mg/dL Total Bilirubin 0.8 (0.2-1.0) mg/dL AST 18 (15-37) U/L ALT 34 (16-63) U/L Alkaline Phosphatase 82 (46-116) U/L Lactate Dehydrogenase 150 (85-227) U/L Troponin I 0.024 (0.000-0.056) ng/mL C-Reactive Protein 2.6 H (0.0-0.9) mg/dL B-Natriuretic Peptide 50 (0-100) pg/ml Total Protein 6.7 (6.4-8.2) g/dL Albumin 3.4 (3.4-5.0) g/dL Globulin 3.3 Albumin/Globulin Ratio 1.0 12/13/20 Range/Units 19:55 WBC (5.0-10.0) 10^3/uL RBC (4.6-6.2) 10^6/uL Hgb (14.0-18.0) g/dL Hct (40.0-54.0) % MCV (80-100) fL MCH (27.0-34.0) pg MCHC (33.0-35.0) g/dL Plt Count (150-450) 10^3/uL Neut % (Auto) (42.2-75.2) % Lymph % (Auto) (20.5-50.1) % [place] % (Auto) (2-8) % Eos % (Auto) (1.0-3.0) % Baso % (Auto) (0.0-1.0) % PT (9.0-12.0) SEC INR (0.9-1.2) D-Dimer, Quantitative (0-400) ng/mL Sodium (136-145) mmol/L Potassium (3.5-5.1) mmol/L Chloride (98-107) mmol/L Carbon Dioxide (21-32) mmol/L Anion Gap (7-13) mEq/L BUN (7-18) mg/dL Creatinine (0.70-1.30) mg/dL Est Cr Clr Drug Dosing mL/min Estimated GFR (MDRD) BUN/Creatinine Ratio (No establ ref range) Glucose (74-99) mg/dL Calcium (8.5-10.1) mg/dL Total Bilirubin (0.2-1.0) mg/dL AST (15-37) U/L ALT (16-63) U/L Alkaline Phosphatase (46-116) U/L Lactate Dehydrogenase (85-227) U/L Troponin I 0.022 (0.000-0.056) ng/mL C-Reactive Protein (0.0-0.9) mg/dL B-Natriuretic Peptide (0-100) pg/ml Total Protein (6.4-8.2) g/dL Albumin (3.4-5.0) g/dL Globulin Albumin/Globulin Ratio Meds: Medications Discontinued Medications Generic Name Dose Route Start Last Admin Trade Name Freq PRN Reason Stop Dose Admin Doxycycline Monohydrate 100 mg 03/02/20 20:31 03/02/20 20:56 Doxycycline Monohydrate PO 03/02/20 20:32 100 mg ONETIME ONE Administration - Re-Assessments/Exams Free Text/Narrative Re-Assessment/Exam: Reports symptoms improved almost at baseline. Repeat labe, EKG negative. Has pulmonology routine appointment scheduled. Departure - Departure Time of Disposition: 20:33 Condition: Good I have read and agree with the documentation that has been completed regarding this visit. By signing this record, I attest that the documentation was completed in my physical presence and is an accurate record of the encounter.
[2020-03-02 20:11] VITALS: BP 97/53; PULSE 57
[2020-03-02] MEDS ORDERED: Doxycycline Monohydrate 100 MG Cap PO ONE (20:31)
== END 2020-03-02 21:10 | disposition home or self-care (01) ==
LOC: DL.ED 15:54
DX: J44.9 Chronic obstructive pulmonary disease, unspecified (principal); E78.00 Pure hypercholesterolemia, unspecified; I11.0 Hypertensive heart disease with heart failure; I50.9 Heart failure, unspecified; Z99.81 Dependence on supplemental oxygen; Z88.5 Allergy status to narcotic agent; Z79.82 Long term (current) use of aspirin; Z79.899 Other long term (current) drug therapy
CPT/HCPCS: 36415; 71045; 80053; 83615; 83880; 84484; 85025; 85379; 85610; 86140; 93005; 99285; A9270

== ENCOUNTER 2020-09-23 17:48 | Emergency (ER) | payer MEDICARE, OTHER ==
[2020-09-23 18:34] VITALS: BP 149/55; PULSE 52
--- NOTE | 2020-09-23 18:35 | EDM.PDOC ---
<Darline Fam - Last Filed: 09/23/20 19:57> ED HPI GENERAL MEDICAL PROBLEM - General Chief Complaint: Cardiovascular Problem Stated Complaint: BLOOD PRESSURE 99/44 Time Seen by Provider: 09/23/20 18:31 - Related Data Allergies Allergy/AdvReac Type Severity Reaction Status Date / Time morphine Allergy Unknown unknown Verified 11/06/19 16:27 Home Meds: Home Meds Acetaminophen [Tylenol] 650 mg PO Q6H PRN 06/19/14 [History] Albuterol [Proventil Neb Soln] 3 ml INH ASDIRECTED PRN 06/19/14 [History] Aspirin [Halfprin] 81 mg PO DAILY 06/19/14 [History] Furosemide [Lasix] 20 mg PO ASDIRECTED 06/19/14 [History] Theophylline [Theophylline Anhydrous] 300 mg PO BID 06/19/14 [History] Tiotropium [Spiriva HandiHaler] 18 mcg INH DAILY 06/19/14 [History] atorvaSTATin Calcium [Atorvastatin Calcium] 40 mg PO BEDTIME 06/19/14 [History] Budesonide/Formoterol Fumarate [Symbicort 160-4.5 Mcg Inhaler] 2 puff INH BID 06/28/17 [History] Latanoprost [Xalatan 0.005% Ophth Soln] 1 drop EYEBOTH BEDTIME 06/28/17 [History] Melatonin 3 cap PO BEDTIME 06/28/17 [History] Albuterol [Ventolin HFA] 2 puff INH Q6H PRN 11/06/19 [History] Cetirizine HCl [Zyrtec] 5 mg PO DAILY 11/06/19 [History] Doxycycline Hyclate 1 cap PO BID PRN 11/06/19 [History] Sennosides/Docusate Sodium [Docusate Sodium-Sennosides Tab] 1 tab PO BID PRN 11/06/19 [History] predniSONE [Prednisone] 40 mg PO DAILY PRN 11/06/19 [History] Isosorbide Mononitrate [Isosorbide Mononitrate ER] 30 mg PO DAILY 05/06/20 [History] Metoprolol Succinate 25 mg PO DAILY 05/06/20 [History] Omeprazole 20 mg PO DAILY 05/06/20 [History] Course - Re-Assessments/Exams Free Text/Narrative Re-Assessment/Exam: 09/23/20 20:00 Patient states feeling well. BP 130/57 at this time. Departure - Departure Time of Disposition: 19:57 Disposition: Home, Self-Care 01 Reason for Transfer *Q: Other Condition: Good Clinical Impression: Hyperkalemia Instructions: Hypertension, Adult, [id number] Referrals: PCP,None [Primary Care Provider] - Forms: ED Department Discharge Additional Instructions: Call Mita at [facility] tomorrow morning regarding BP medication management, occasional low blood pressure and dizziness Hold your Potassium until seen by your primary care provider Return to the ER with any further problems Drink plenty of water <Chantel Pimentel - Last Filed: 09/24/20 10:12> ED HPI GENERAL MEDICAL PROBLEM - General Source of Information: Reports: Patient, RN, RN Notes Reviewed History Limitations: Reports: No Limitations - History of Present Illness INITIAL COMMENTS - FREE TEXT/NARRATIVE: Maikol is a 80 y/o male with a history of HTN, HLA, CHF, and COPD on 2L home O2 who presents to the ED via personal vehicle with complaints of hypotension. The patient reports he was taking his blood pressure this morning and noted the reading was 80s/40s. He took his previously prescribed antihypertensives and rechecked his blood pressure in the late afternoon with readings again 80s/40s The patient reports he is to receive cardiac stents in four vessels on October 07, 14 days from now, via Dr. Salcedo. He states he met with a cardiothoracic surgeon who told him he is not a candidate for CABG. The patient denies fever, shaking chills, vision changes, chest pain, palpitations, nausea, vomiting, or diarrhea. He does attest to shortness of breath, but does not feel it is worse than normal. Past Medical History HEENT History: Reports: Impaired Vision Other HEENT History: wears glasses Cardiovascular History: Reports: Heart Failure, High Cholesterol, Hypertension Respiratory History: Reports: COPD Other Respiratory History: Home O2 Social & Family History - Family History Family Medical History: No Pertinent Family History - Caffeine Use Caffeine Use: Reports: Coffee ED ROS GENERAL - Review of Systems Review Of Systems: Comprehensive ROS is negative, except as noted in HPI. ED EXAM, GENERAL - Physical Exam Exam: See Below Exam Limited By: No Limitations General Appearance: Alert, No Apparent Distress Eye Exam: Bilateral Eye: EOMI, Normal Inspection, PERRL (3mm) Ears: Normal External Exam, Normal Canal, Hearing Grossly Normal, Normal TMs Ear Exam: Bilateral Ear: Auricle Normal, Canal Normal, TM normal Nose: Normal Inspection, Normal Mucosa, No Blood Throat/Mouth: Normal Inspection, Normal Oropharynx, Normal Voice, No Airway Compromise. No: Normal Teeth (Poor ) Head: Atraumatic, Normocephalic Neck: Normal Inspection, Supple, Non-Tender, Full Range of Motion. No: Lymphadenopathy (L), Lymphadenopathy (R) Respiratory/Chest: Chest Non-Tender, Decreased Breath Sounds, Accessory Muscle Use, Other (2L O2 at baseline). No: Crackles, Rales, Rhonchi, Wheezing, Retractions Cardiovascular: Normal Peripheral Pulses, Regular Rate, Rhythm, No Edema, No Gallop, No JVD, No Murmur, No Rub, Bradycardia Peripheral Pulses: 2+: Radial (L), Radial (R) GI/Abdominal: Normal Bowel Sounds, Soft, Non-Tender, No Distention, No Abnormal Bruit, No Mass, Pelvis Stable (Male) Exam: Deferred Rectal (Males) Exam: Deferred Back Exam: Normal Inspection, Full Range of Motion Extremities: Normal Inspection, Normal Range of Motion, Non-Tender, No Pedal Edema, Normal Capillary Refill Neurological: Alert, Oriented, CN II-XII Intact, Normal Cognition, Normal Gait, No Motor/Sensory Deficits Psychiatric: Normal Affect, Normal Mood Skin Exam: Warm, Dry, Intact, Normal Color, No Rash. No: Cyanosis, Erythema, Jaundice, Mottled, Pallor, Petechiae #1 Interpretation EKG Date: 09/23/20 Time: 18:27 Rhythm: Other (Sinus bradycardia) Rate (Beats/Min): 50 [place]: Normal P-Wave: Present QRS: LBBB ST-T: Normal QT: Normal MI/PQ Interval: 0.173 Comparison: Change From Previous EKG (BB in V3) EKG Interpretation Comments: SB; LBBB; Q-waves in V2 and V3 Course - Vital Signs Last Recorded V/S: Last Vital Signs Temp 97.2 F 09/23/20 18:19 Pulse 52 L 09/23/20 18:19 Resp 16 09/23/20 18:19 BP 149/55 H 09/23/20 18:19 Pulse Ox 99 09/23/20 18:19 - Orders/Labs/Meds Labs: Laboratory Tests 09/23/20 09/23/20 Range/Units 18:24 18:24 WBC 8.5 (5.0-10.0) 10^3/uL RBC 4.73 (4.6-6.2) 10^6/uL Hgb 13.5 L (14.0-18.0) g/dL Hct 42.5 (40.0-54.0) % MCV 89.9 (80-100) fL MCH 28.5 (27.0-34.0) pg MCHC 31.8 L (33.0-35.0) g/dL Plt Count 219 (150-450) 10^3/uL Neut % (Auto) 71.1 (42.2-75.2) % Lymph % (Auto) 17.6 L (20.5-50.1) % [place] % (Auto) 8.0 (2-8) % Eos % (Auto) 3.2 H (1.0-3.0) % Baso % (Auto) 0.1 (0.0-1.0) % Sodium 145 (136-145) mmol/L Potassium 5.5 H D (3.5-5.1) mmol/L Chloride 106 (98-107) mmol/L Carbon Dioxide 37 H (21-32) mmol/L Anion Gap 7.5 (7-13) mEq/L BUN 26 H (7-18) mg/dL Creatinine 1.02 (0.70-1.30) mg/dL Est Cr Clr Drug Dosing 60.63 mL/min Estimated GFR (MDRD) > 60 BUN/Creatinine Ratio 25.5 (No establ ref range) Glucose 103 H (70-99) mg/dL Calcium 9.1 (8.5-10.1) mg/dL Total Bilirubin 0.6 (0.2-1.0) mg/dL AST 23 (15-37) U/L ALT 29 (16-63) U/L Alkaline Phosphatase 96 (46-116) U/L Troponin I High Sens 23 (<=76) pg/mL Total Protein 7.3 (6.4-8.2) g/dL Albumin 3.5 (3.4-5.0) g/dL Globulin 3.8 Albumin/Globulin Ratio 0.9 - Re-Assessments/Exams Free Text/Narrative Re-Assessment/Exam: 09/23/20 Care of patient transferred to [facility] at 1900.
[2020-09-23 18:56] LABS: ANION GAP 7.5 mEq/L (7-13); CHLORIDE,CL 106 mmol/L (98-107); SODIUM,NA 145 mmol/L (136-145)
== END 2020-09-23 20:05 | disposition home or self-care (01) ==
LOC: DL.ED 17:48
DX: E87.5 Hyperkalemia (principal); I11.0 Hypertensive heart disease with heart failure; I50.9 Heart failure, unspecified; E78.5 Hyperlipidemia, unspecified; J44.9 Chronic obstructive pulmonary disease, unspecified; I44.7 Left bundle-branch block, unspecified; Z88.5 Allergy status to narcotic agent; Z79.82 Long term (current) use of aspirin; Z79.899 Other long term (current) drug therapy
CPT/HCPCS: 36415; 80053; 84484; 85025; 93005; 93010; 99284; 99285-25

== ENCOUNTER 2021-02-25 01:33 | Emergency (ER) | payer OTHER, MEDICARE ==
[2021-02-25] MEDS ORDERED: Nitroglycerin 0.4 MG Tab.SL SL ONE (01:57)
--- NOTE | 2021-02-25 02:17 | EDM.PDOC ---
ED HPI GENERAL MEDICAL PROBLEM - General Chief Complaint: Chest Pain Stated Complaint: CHEST PAIN Time Seen by Provider: 02/25/21 01:40 Source of Information: Reports: Patient History Limitations: Reports: No Limitations - History of Present Illness INITIAL COMMENTS - FREE TEXT/NARRATIVE: ED with c/o chest pain since around midnight, at worst rate 6/10, 4/ 10 now. No fever chills or cough. Took one nitro at [facility] and seemed to help some. Pain when present radiates down left arm. Has had prior heart issues, 2 stents 6 months ago in [place]. Left Anterior Chest Pain Score (Numeric/FACES): 5 - Related Data Allergies Allergy/AdvReac Type Severity Reaction Status Date / Time morphine Allergy Unknown Change Verified 02/25/21 02:26 Mental Status Home Meds: Home Meds Acetaminophen [Tylenol] 650 mg PO Q6H PRN 06/19/14 [History] Albuterol [Proventil Neb Soln] 3 ml INH ASDIRECTED PRN 06/19/14 [History] Furosemide [Lasix] 20 mg PO TID 06/19/14 [History] Budesonide/Formoterol Fumarate [Symbicort 160-4.5 Mcg Inhaler] 2 puff INH BID 06/28/17 [History] Latanoprost [Xalatan 0.005% Ophth Soln] 1 drop EYEBOTH BEDTIME 06/28/17 [History] Melatonin 9 mg PO BEDTIME 06/28/17 [History] Albuterol [Ventolin HFA] 2 puff INH Q6H PRN 11/06/19 [History] Cetirizine HCl [Zyrtec] 5 mg PO DAILY 11/06/19 [History] predniSONE [Prednisone] 40 mg PO DAILY 11/06/19 [History] Isosorbide Mononitrate [Isosorbide Mononitrate ER] 60 mg PO DAILY 05/06/20 [History] Metoprolol Succinate 12.5 mg PO DAILY 05/06/20 [History] Omeprazole 20 mg PO DAILY 05/06/20 [History] Clopidogrel Bisulfate [Plavix] 75 mg PO DAILY 02/25/21 [History] Nitroglycerin 0.4 mg SL ASDIRECTED PRN 02/25/21 [History] guaiFENesin [Guaifenesin] 200 mg PO TID PRN 02/25/21 [History] Past Medical History HEENT History: Reports: Impaired Vision Other HEENT History: wears glasses Cardiovascular History: Reports: Heart Failure, High Cholesterol, Hypertension Respiratory History: Reports: COPD Other Respiratory History: Home O2 Social & Family History - Family History Family Medical History: No Pertinent Family History - Caffeine Use Caffeine Use: Reports: None ED ROS GENERAL - Review of Systems Review Of Systems: Comprehensive ROS is negative, except as noted in HPI. ED EXAM, GENERAL - Physical Exam Exam: See Below Exam Limited By: No Limitations General Appearance: Alert, Anxious Eye Exam: Bilateral Eye: EOMI Ears: Normal External Exam, Hearing Loss Nose: Normal Inspection Throat/Mouth: Normal Inspection Head: Atraumatic, Normocephalic Respiratory/Chest: No Respiratory Distress, Lungs Clear, Decreased Breath Sounds. No: Rales, Rhonchi, Wheezing, Stridor Cardiovascular: Regular Rate, Rhythm, No Edema, No JVD GI/Abdominal: Normal Bowel Sounds Back Exam: Full Range of Motion Extremities: Normal Range of Motion Neurological: Alert, Oriented, Normal Cognition Psychiatric: Normal Affect Skin Exam: Warm, Dry, Intact, Normal Color #1 Interpretation EKG Date: 02/25/21 Time: 01:44 Rhythm: NSR [place]: Normal P-Wave: Present QRS: Normal ST-T: Normal Comparison: No Change #2 Interpretation EKG Date: 02/25/21 Time: 04:57 Rhythm: NSR [place]: Normal P-Wave: Present QRS: LBBB ST-T: Normal Comparison: No Change Course - Vital Signs Last Recorded V/S: Last Vital Signs Temp 98.1 F 02/25/21 01:40 Pulse 63 02/25/21 01:40 Resp 20 02/25/21 01:40 BP 150/59 H 02/25/21 02:09 Pulse Ox 99 02/25/21 01:40 - Orders/Labs/Meds Labs: Laboratory Tests 02/25/21 02/25/21 02/25/21 Range/Units 01:45 01:45 01:45 WBC 8.4 (5.0-10.0) 10^3/uL RBC 4.51 L (4.6-6.2) 10^6/uL Hgb 13.3 L (14.0-18.0) g/dL Hct 42.8 (40.0-54.0) % MCV 94.9 D (80-100) fL MCH 29.5 (27.0-34.0) pg MCHC 31.1 L (33.0-35.0) g/dL Plt Count 158 (150-450) 10^3/uL Neut % (Auto) 66.2 (42.2-75.2) % Lymph % (Auto) 19.2 L (20.5-50.1) % [place] % (Auto) 10.9 H (2-8) % Eos % (Auto) 3.5 H (1.0-3.0) % Baso % (Auto) 0.2 (0.0-1.0) % Sodium 147 H (136-145) mmol/L Potassium 4.1 (3.5-5.1) mmol/L Chloride 105 (98-107) mmol/L Carbon Dioxide 39 H (21-32) mmol/L Anion Gap 7.1 (7-13) mEq/L BUN 22 H (7-18) mg/dL Creatinine 0.87 (0.70-1.30) mg/dL Est Cr Clr Drug Dosing TNP Estimated GFR (MDRD) > 60 BUN/Creatinine Ratio 25.3 (No establ ref range) Glucose 137 H (70-99) mg/dL Lactic Acid 0.8 (0.4-2.0) mmol/L Calcium 9.1 (8.5-10.1) mg/dL Total Bilirubin 0.4 (0.2-1.0) mg/dL AST 25 (15-37) U/L ALT 36 (16-63) U/L Alkaline Phosphatase 82 (46-116) U/L Troponin I High Sens 70 (<=76) pg/mL B-Natriuretic Peptide 152 H (0-100) pg/ml Total Protein 7.5 (6.4-8.2) g/dL Albumin 3.5 (3.4-5.0) g/dL Globulin 4.0 Albumin/Globulin Ratio 0.9 Amylase 60 (25-115) U/L Lipase 343 (73-393) U/L SARS-CoV-2 RNA (BG) (NEGATIVE) 02/25/21 02/25/21 02/25/21 Range/Units 02:15 03:50 05:35 WBC (5.0-10.0) 10^3/uL RBC (4.6-6.2) 10^6/uL Hgb (14.0-18.0) g/dL Hct (40.0-54.0) % MCV (80-100) fL MCH (27.0-34.0) pg MCHC (33.0-35.0) g/dL Plt Count (150-450) 10^3/uL Neut % (Auto) (42.2-75.2) % Lymph % (Auto) (20.5-50.1) % [place] % (Auto) (2-8) % Eos % (Auto) (1.0-3.0) % Baso % (Auto) (0.0-1.0) % Sodium (136-145) mmol/L Potassium (3.5-5.1) mmol/L Chloride (98-107) mmol/L Carbon Dioxide (21-32) mmol/L Anion Gap (7-13) mEq/L BUN (7-18) mg/dL Creatinine (0.70-1.30) mg/dL Est Cr Clr Drug Dosing Estimated GFR (MDRD) BUN/Creatinine Ratio (No establ ref range) Glucose (70-99) mg/dL Lactic Acid (0.4-2.0) mmol/L Calcium (8.5-10.1) mg/dL Total Bilirubin (0.2-1.0) mg/dL AST (15-37) U/L ALT (16-63) U/L Alkaline Phosphatase (46-116) U/L Troponin I High Sens 82 H* 89 H* (<=76) pg/mL B-Natriuretic Peptide (0-100) pg/ml Total Protein (6.4-8.2) g/dL Albumin (3.4-5.0) g/dL Globulin Albumin/Globulin Ratio Amylase (25-115) U/L Lipase (73-393) U/L SARS-CoV-2 RNA (BG) Negative (NEGATIVE) Meds: Medications Discontinued Medications Generic Name Dose Route Start Last Admin Trade Name Freq PRN Reason Stop Dose Admin Nitroglycerin 0.4 mg 02/25/21 01:57 02/25/21 02:09 Nitroglycerin 0.4 Mg Tab.Sl SL 02/25/21 01:58 0.4 mg ONETIME ONE Administration - Re-Assessments/Exams Free Text/Narrative Re-Assessment/Exam: 02/25/21 04:52 Patient remains pain free. Informed lab results ans EKG. Slight increase in Troponin from presentation . Plan repeat Tx from chair to cot. SOB with activity. Oxygen saturation maintained. Departure - Departure Time of Disposition: 06:18 Disposition: Home, Self-Care 01 Condition: Fair Clinical Impression: Angina at rest Instructions: Angina, [id number] Forms: ED Department Discharge Additional Instructions: increase furosemide to 20mg twice today then [facility] Urgent follow up if recurrent chest pain SOB, nausea dizziness Continue other home medications Nitoro 0.4mg under tongue at onset of chest pain , may repeat every 5 minutes for 3 doses,if continued pain, if no relief call 911 Sepsis Event Note (ED) - Focused Exam Vital Signs: Vital Signs Temp Pulse Resp BP BP Pulse Ox Pulse Ox 02/25/21 02:09 150/59 H 02/25/21 01:40 98.1 F 63 20 159/64 H 99 99
[2021-02-25 02:23] LABS: ANION GAP 7.1 mEq/L (7-13); CHLORIDE,CL 105 mmol/L (98-107); SODIUM,NA 147 mmol/L (136-145)
[2021-02-25 02:26] VITALS: BP 159/64; PULSE 63
--- NOTE | 2021-02-25 04:02 | CR ---
PROCEDURE INFORMATION: Exam: XR Chest Exam date and time: 02/25/2021 2:34 AM Age: 80 years old Clinical indication: Chest wall pain; Additional info: Chest pain TECHNIQUE: Imaging protocol: XR of the chest. Views: 1 view. COMPARISON: CR Chest 1V Frontal 03/02/2020 4:30 PM FINDINGS: Lungs: Diffuse emphysematous changes. Pleural spaces: Unremarkable. No pleural effusion. No pneumothorax. Heart/Mediastinum: Unremarkable. No cardiomegaly. Bones/joints: Unremarkable. Soft tissues: There are partially obscuring overlapping chest leads. IMPRESSION: Diffuse emphysematous changes. No superimposed acute chest findings.
== END 2021-02-25 06:30 | disposition home or self-care (01) ==
LOC: DL.ED 01:33
DX: I20.9 Angina pectoris, unspecified (principal); I11.0 Hypertensive heart disease with heart failure; I50.9 Heart failure, unspecified; J44.9 Chronic obstructive pulmonary disease, unspecified; I44.7 Left bundle-branch block, unspecified; Z88.5 Allergy status to narcotic agent; Z79.02 Long term (current) use of antithrombotics/antiplatelets; Z79.899 Other long term (current) drug therapy; Z20.822 Contact with and (suspected) exposure to COVID-19
CPT/HCPCS: 36415; 71045; 80053; 82150; 83605; 83690; 83880; 84484; 85025; 87635; 93005; 99285; A9270; U0002

== ENCOUNTER 2022-06-29 16:36 | Emergency (ER) | payer OTHER, MEDICARE ==
[2022-06-29] MEDS ORDERED: Ondansetron 4 MG Tab.DIS PO ONE (16:37)
[2022-06-29 17:09] VITALS: BP 96/76
[2022-06-29] MEDS ORDERED: Sodium Chloride 0.9% 10 ML Syringe FLUSH PRN (17:23)
[2022-06-29] MEDS ORDERED: Sodium Chloride 0.9% 500 ML IV SCH (18:00)
[2022-06-29 18:09] LABS: ANION GAP 9.2 mEq/L (7-13)
[2022-06-29 18:13] LABS: CORONAVIRUS COVID-19 NAA NEGATIVE (NEGATIVE); RESPIRATORY SYNCYTIAL VIR NAA NEGATIVE (NEGATIVE)
[2022-06-29 18:34] VITALS: PULSE 58
[2022-06-29] MEDS ORDERED: Ondansetron 4 MG Tab.DIS ONE (18:55)
== END 2022-06-29 19:06 | disposition home or self-care (01) ==
LOC: DL.ED 16:36
DX: K52.9 Noninfective gastroenteritis and colitis, unspecified (principal); I11.0 Hypertensive heart disease with heart failure; I50.9 Heart failure, unspecified; J44.9 Chronic obstructive pulmonary disease, unspecified; Z88.5 Allergy status to narcotic agent; Z79.02 Long term (current) use of antithrombotics/antiplatelets; Z95.9 Presence of cardiac and vascular implant and graft, unspecified; Z20.822 Contact with and (suspected) exposure to COVID-19
CPT/HCPCS: 0241U; 36415; 80053; 81001; 82150; 83605; 83690; 83880; 84484; 85025; 87040; 93005; 96360; 99285; A9270; J7040; J3490

== ENCOUNTER 2022-09-16 14:53 | Emergency (ER) | payer OTHER ==
[2022-09-16 15:10] VITALS: BP 147/69
[2022-09-16] MEDS ORDERED: Sodium Chloride 0.9% 10 ML Syringe FLUSH PRN (15:11)
[2022-09-16] MEDS ORDERED: Albuterol/Ipratropium 3.0-0.5 MG/3 ML Neb Soln NEB ONE (15:20)
[2022-09-16 15:25] LABS: BASOPHILS PERCENT AUTO 0.1 % (0.0-1.0); EOSINOPHILS PERCENT AUTO 2.6 % (1.0-3.0); HEMATOCRIT 39.3 % (40.0-54.0); HEMOGLOBIN 12.9 g/dL (14.0-18.0); LYMPHOCYTES PERCENT AUTO 26.9 % (20.5-50.1); MEAN CORPUSCULAR HEMOGLOBIN 29.7 pg (27.0-34.0); MEAN CORPUSCULAR HGB CONC 32.8 g/dL (33.0-35.0); MEAN CORPUSCULAR VOLUME 90.3 fL (80-100); MONOCYTES PERCENT AUTO 8.1 % (2-8); NEUTROPHILS PERCENT AUTO 62.3 % (42.2-75.2); PLATELET COUNT,PLT 166 10^3/uL (150-450); RED BLOOD CELL COUNT 4.35 10^6/uL (4.6-6.2); WHITE BLOOD CELL COUNT,WBC 7.7 10^3/uL (5.0-10.0)
[2022-09-16 15:32] LABS: O2 DELIVERY DEVICE ROOM AIR
[2022-09-16 15:34] LABS: BASE EXCESS ARTERIAL 17 mmol/L ((-2)-(+3)); BICARBONATE,ARTERIAL 44.9 mmol/L (22-26); O2 SATURATION ARTERIAL 97 % (95-100); PH,ARTERIAL 7.44 (7.35-7.45); PO2 ARTERIAL 84 mmHg (70-100)
[2022-09-16 15:37] LABS: PCO2 ARTERIAL 67 mmHg (35-45)
[2022-09-16 15:46] LABS: INR 1.1 (0.9-1.2); PROTHROMBIN TIME 11.4 SEC (9.0-12.0); PTT,PARTIAL THROMBOPLSTIN TIME 25.9 SEC (22.0-34.0)
[2022-09-16 15:50] LABS: A/G RATIO 0.9; ALANINE AMINOTRANSFERASE,ALT 24 U/L (16-63); ALBUMIN 3.5 g/dL (3.4-5.0); ALKALINE PHOSPHATASE 98 U/L (46-116); ANION GAP 4.7 mEq/L (7-13); ASPARTATE AMNIOTRANSFERASE,AST 24 U/L (15-37); BLOOD UREA NITROGEN,BUN 19 mg/dL (7-18); BUN/CREATININE RATIO 15.4 (No establ ref range); CALCIUM 9.1 mg/dL (8.5-10.1); CHLORIDE,CL 97 mmol/L (98-107); CREATININE 1.23 mg/dL (0.70-1.30); EST CRCL DRUG DOSING (CG) 48.05 mL/min; GLUCOSE RANDOM 119 mg/dL (70-99); MAGNESIUM 1.1 mg/dL (1.8-2.4); POTASSIUM,K 3.7 mmol/L (3.5-5.1); PROTEIN TOTAL,TP 7.4 g/dL (6.4-8.2); SODIUM,NA 142 mmol/L (136-145)
[2022-09-16 15:52] LABS: B-TYPE NATRIURETIC PEPTIDE,BNP 30 pg/ml (0-100)
[2022-09-16 15:53] LABS: C-REACTIVE PROTEIN < 0.2 mg/dL (0.0-0.9); CARBON DIOXIDE,CO2 44 mmol/L (21-32); ESTIMATED GFR 59 mL/min (>=60)
[2022-09-16 15:56] VITALS: PULSE 65
[2022-09-16] MEDS ORDERED: Magnesium Sulfate/Water 2 GM in Premix Bag 1 BAG IV ONE (16:10)
[2022-09-16] MEDS ORDERED: Magnesium Oxide 400 MG Tab PO ONE (16:11)
[2022-09-17 08:35] LABS: ALLEN TEST PERFORMED
== END 2022-09-16 18:16 | disposition home or self-care (01) ==
LOC: DL.ED 14:53
DX: J44.9 Chronic obstructive pulmonary disease, unspecified (principal); J10.1 Influenza due to other identified influenza virus with other respiratory manifestations; E83.42 Hypomagnesemia; E87.29 Other acidosis; I11.0 Hypertensive heart disease with heart failure; I50.9 Heart failure, unspecified; Z95.5 Presence of coronary angioplasty implant and graft; Z88.5 Allergy status to narcotic agent; Z79.899 Other long term (current) drug therapy; Z79.02 Long term (current) use of antithrombotics/antiplatelets; Z87.891 Personal history of nicotine dependence; Z20.822 Contact with and (suspected) exposure to COVID-19
CPT/HCPCS: 36415; 36600; 71045; 80053; 82803; 83605; 83735; 83880; 84484; 85025; 85610; 85730; 86140; 87804; 93005; 94640; 94667; 96365; 96366; 99285-25; A9270-GY; J3475; J3490; J7620-GY; U0002

== ENCOUNTER 2022-10-27 11:05 | Emergency (ER) | payer MEDICARE, OTHER ==
[2022-10-27 11:28] VITALS: BP 135/66; PULSE 89
[2022-10-27 11:36] LABS: BASOPHILS PERCENT AUTO 0.1 % (0.0-1.0); EOSINOPHILS PERCENT AUTO 1.5 % (1.0-3.0); HEMATOCRIT 44.6 % (40.0-54.0); HEMOGLOBIN 14.8 g/dL (14.0-18.0); LYMPHOCYTES PERCENT AUTO 22.6 % (20.5-50.1); MEAN CORPUSCULAR HEMOGLOBIN 30.1 pg (27.0-34.0); MEAN CORPUSCULAR HGB CONC 33.2 g/dL (33.0-35.0); MEAN CORPUSCULAR VOLUME 90.7 fL (80-100); MONOCYTES PERCENT AUTO 9.5 % (2-8); NEUTROPHILS PERCENT AUTO 66.3 % (42.2-75.2); PLATELET COUNT,PLT 138 10^3/uL (150-450); RED BLOOD CELL COUNT 4.92 10^6/uL (4.6-6.2); WHITE BLOOD CELL COUNT,WBC 8.9 10^3/uL (5.0-10.0)
[2022-10-27 11:56] LABS: ALANINE AMINOTRANSFERASE,ALT 29 U/L (16-63); ALBUMIN 3.1 g/dL (3.4-5.0); ALKALINE PHOSPHATASE 108 U/L (46-116); ANION GAP 6.7 mEq/L (7-13); ASPARTATE AMNIOTRANSFERASE,AST 34 U/L (15-37); B-TYPE NATRIURETIC PEPTIDE,BNP 61 pg/ml (0-100); BILIRUBIN TOTAL 0.7 mg/dL (0.2-1.0); BLOOD UREA NITROGEN,BUN 17 mg/dL (7-18); CARBON DIOXIDE,CO2 40 mmol/L (21-32); CHLORIDE,CL 100 mmol/L (98-107); CREATININE 1.13 mg/dL (0.70-1.30); GLUCOSE RANDOM 129 mg/dL (70-99); POTASSIUM,K 3.7 mmol/L (3.5-5.1); PROTEIN TOTAL,TP 7.7 g/dL (6.4-8.2); SODIUM,NA 143 mmol/L (136-145)
[2022-10-27 12:00] LABS: A/G RATIO 0.67; ESTIMATED GFR 65 mL/min (>=60)
== END 2022-10-27 14:20 | disposition home or self-care (01) ==
LOC: DL.ED 11:05
DX: J44.1 Chronic obstructive pulmonary disease with (acute) exacerbation (principal); I11.0 Hypertensive heart disease with heart failure; I50.9 Heart failure, unspecified; E78.00 Pure hypercholesterolemia, unspecified; Z95.5 Presence of coronary angioplasty implant and graft; Z79.01 Long term (current) use of anticoagulants; Z79.899 Other long term (current) drug therapy; Z88.5 Allergy status to narcotic agent
CPT/HCPCS: 36415; 71045; 80053; 83880; 84484; 85025; 93005; 93010; 99284; 99285

== ENCOUNTER 2022-11-23 14:47 | Emergency (ER) | payer MEDICARE ==
[2022-11-23] MEDS ORDERED: Sodium Chloride 0.9% 10 ML Syringe FLUSH PRN (15:06)
[2022-11-23] MEDS ORDERED: Albuterol/Ipratropium 3.0-0.5 MG/3 ML Neb Soln NEB ONE (15:07)
[2022-11-23] MEDS ORDERED: methylPREDNISolone Sodium Succinate 125 MG/2 ML SDV IVPUSH ONE (15:07)
[2022-11-23 15:30] LABS: BASOPHILS PERCENT AUTO 0.3 % (0.0-1.0); HEMATOCRIT 39.7 % (40.0-54.0); HEMOGLOBIN 13.1 g/dL (14.0-18.0); LYMPHOCYTES PERCENT AUTO 24.6 % (20.5-50.1); MEAN CORPUSCULAR HEMOGLOBIN 30.1 pg (27.0-34.0); MEAN CORPUSCULAR VOLUME 91.3 fL (80-100); MONOCYTES PERCENT AUTO 8.3 % (2-8); NEUTROPHILS PERCENT AUTO 64.8 % (42.2-75.2); PLATELET COUNT,PLT 197 10^3/uL (150-450); RED BLOOD CELL COUNT 4.35 10^6/uL (4.6-6.2)
[2022-11-23 15:54] LABS: B-TYPE NATRIURETIC PEPTIDE,BNP 23 pg/ml (0-100)
[2022-11-23 16:09] LABS: ALANINE AMINOTRANSFERASE,ALT 38 U/L (16-63); ALBUMIN 3.3 g/dL (3.4-5.0); ALKALINE PHOSPHATASE 123 U/L (46-116); ANION GAP 5.7 mEq/L (7-13); ASPARTATE AMNIOTRANSFERASE,AST 34 U/L (15-37); BILIRUBIN TOTAL 0.5 mg/dL (0.2-1.0); BLOOD UREA NITROGEN,BUN 20 mg/dL (7-18); CALCIUM 9.2 mg/dL (8.5-10.1); CARBON DIOXIDE,CO2 42 mmol/L (21-32); CHLORIDE,CL 99 mmol/L (98-107); CREATININE 1.05 mg/dL (0.70-1.30); GLUCOSE RANDOM 132 mg/dL (70-99); POTASSIUM,K 3.7 mmol/L (3.5-5.1); PROTEIN TOTAL,TP 7.5 g/dL (6.4-8.2); SODIUM,NA 143 mmol/L (136-145)
[2022-11-23 16:12] LABS: A/G RATIO 0.79; ESTIMATED GFR 71 mL/min (>=60)
[2022-11-23 16:19] VITALS: BP 135/65; PULSE 60
== END 2022-11-23 16:37 | disposition home or self-care (01) ==
LOC: DL.ED 14:47
DX: J44.1 Chronic obstructive pulmonary disease with (acute) exacerbation (principal); I10 Essential (primary) hypertension; Z88.5 Allergy status to narcotic agent; Z79.02 Long term (current) use of antithrombotics/antiplatelets; Z79.899 Other long term (current) drug therapy; Z95.5 Presence of coronary angioplasty implant and graft
CPT/HCPCS: 36415; 71045; 80053; 83880; 84484; 85025; 93005; 93010; 94640; 96374; 99284; 99285-25; J2930; J3490; J7620-GY

== ENCOUNTER 2023-02-08 05:44 | Emergency (ER) | payer MEDICARE, OTHER ==
[2023-02-08] MEDS ORDERED: Albuterol/Ipratropium 3.0-0.5 MG/3 ML Neb Soln ONE (07:10)
[2023-02-08] MEDS ORDERED: Sodium Chloride 0.9% 10 ML Syringe FLUSH PRN (07:11)
[2023-02-08] MEDS ORDERED: Albuterol/Ipratropium 3.0-0.5 MG/3 ML Neb Soln NEB ONE (07:12)
[2023-02-08 07:25] LABS: EOSINOPHILS PERCENT AUTO 0.4 % (1.0-3.0); HEMATOCRIT 46.9 % (40.0-54.0); HEMOGLOBIN 14.7 g/dL (14.0-18.0); LYMPHOCYTES PERCENT AUTO 15.2 % (20.5-50.1); MEAN CORPUSCULAR HEMOGLOBIN 29.6 pg (27.0-34.0); MEAN CORPUSCULAR HGB CONC 31.3 g/dL (33.0-35.0); MEAN CORPUSCULAR VOLUME 94.4 fL (80-100); MONOCYTES PERCENT AUTO 8.3 % (2-8); NEUTROPHILS PERCENT AUTO 76.1 % (42.2-75.2); PLATELET COUNT,PLT 114 10^3/uL (150-450); RED BLOOD CELL COUNT 4.97 10^6/uL (4.6-6.2); WHITE BLOOD CELL COUNT,WBC 6.8 10^3/uL (5.0-10.0)
[2023-02-08] MEDS ORDERED: Albuterol 0.083% 2.5 MG/3 ML Neb Soln NEB ONE (07:33)
[2023-02-08] MEDS ORDERED: methylPREDNISolone Sodium Succinate 125 MG/2 ML SDV IVPUSH ONE (07:34)
[2023-02-08 07:43] LABS: INR 1.1 (0.9-1.2); PROTHROMBIN TIME 11.6 SEC (9.0-12.0); PTT,PARTIAL THROMBOPLSTIN TIME 26.5 SEC (22.0-34.0)
[2023-02-08 07:46] LABS: A/G RATIO 0.9; ALANINE AMINOTRANSFERASE,ALT 28 U/L (16-63); ALBUMIN 3.4 g/dL (3.4-5.0); ALKALINE PHOSPHATASE 115 U/L (46-116); ASPARTATE AMNIOTRANSFERASE,AST 23 U/L (15-37); BILIRUBIN TOTAL 1.6 mg/dL (0.2-1.0); BLOOD UREA NITROGEN,BUN 17 mg/dL (7-18); BUN/CREATININE RATIO 19.5 (No establ ref range); C-REACTIVE PROTEIN 1.07 ng/dL (<=0.50); CALCIUM 9.3 mg/dL (8.5-10.1); CHLORIDE,CL 96 mmol/L (98-107); CREATININE 0.87 mg/dL (0.70-1.30); EST CRCL DRUG DOSING (CG) 66.59 mL/min; GLUCOSE RANDOM 123 mg/dL (70-99); MAGNESIUM 1.2 mg/dL (1.8-2.4); POTASSIUM,K 4.4 mmol/L (3.5-5.1); PROTEIN TOTAL,TP 7.4 g/dL (6.4-8.2); SODIUM,NA 143 mmol/L (136-145)
[2023-02-08 07:49] LABS: B-TYPE NATRIURETIC PEPTIDE,BNP 425 pg/ml (0-100)
[2023-02-08 07:51] LABS: ESTIMATED GFR 87 mL/min (>=60)
[2023-02-08 07:52] LABS: ANION GAP 6.39999 mEq/L (7-13); CARBON DIOXIDE,CO2 > 45 mmol/L (21-32)
[2023-02-08] MEDS ORDERED: Metoprolol Succinate 25 MG Tab.ER PO ONE (08:10)
[2023-02-08] MEDS ORDERED: Isosorbide Mononitrate 30 MG Tab.ER PO ONE (08:10)
[2023-02-08] MEDS ORDERED: Clopidogrel 75 MG Tab PO ONE (08:10)
[2023-02-08 08:11] LABS: CORONAVIRUS COVID-19 NAA NEGATIVE (NEGATIVE); INFLUENZA A NAA NEGATIVE (NEGATIVE); INFLUENZA B NAA NEGATIVE (NEGATIVE); RESPIRATORY SYNCYTIAL VIR NAA NEGATIVE (NEGATIVE)
[2023-02-08] MEDS ORDERED: Furosemide 40 MG/4 ML VIAL IVPUSH ONE (08:11)
[2023-02-08 08:51] LABS: APPEARANCE,URINE SLIGHTLY CLOUDY (CLEAR); BILIRUBIN,URINE LARGE (NEGATIVE); COLOR,URINE AMBER (YELLOW); GLUCOSE,URINE NEGATIVE (NEGATIVE); KETONES,URINE >=160 (NEGATIVE); LEUKOCYTE ESTERASE,URINE NEGATIVE (NEGATIVE); NITRITE,URINE NEGATIVE (NEGATIVE); OCCULT BLOOD,URINE LARGE (NEGATIVE); PROTEIN,URINE 100 (NEGATIVE)
[2023-02-08 08:56] LABS: AMORPHOUS SEDIMENT,URINE MODERATE /HPF (NOT SEEN); BACTERIA,URINE RARE /HPF (0-FEW/HPF); EPITHELIAL CELLS,URINE FEW /HPF (NOT SEEN); MUCUS,URINE MANY /LPF (NOT SEEN); RBC,URINE 40-50 /HPF (0-5); WBC,URINE NOT SEEN /HPF (0-5/HPF)
[2023-02-08 09:20] VITALS: PULSE 101
[2023-02-08] MEDS ORDERED: Magnesium Sulfate/Water 2 GM in Premix Bag 1 BAG IV ONE (10:01)
[2023-02-08 10:13] VITALS: BP 115/61
[2023-02-08] MEDS ORDERED: Piperacillin/Tazobactam 4.5 GM in Sodium Chloride 0.9% 100 ML IV ONE (10:13)
[2023-02-08 10:52] LABS: O2 DELIVERY DEVICE BIPAP
[2023-02-08 10:54] LABS: PH,ARTERIAL 7.41 pH (7.35-7.45)
[2023-02-08 10:55] LABS: BASE EXCESS ARTERIAL 16 mmol/L ((-2)-(+3)); BICARBONATE,ARTERIAL 41 mmol/L (21-28); O2 SATURATION ARTERIAL 98 % (94-98); PCO2 ARTERIAL 65 mmHg (35-48); PO2 ARTERIAL 104 mmHg (83-108)
[2023-02-08] MEDS ORDERED: Heparin Sodium 5,000 Units/ML Vial IVPUSH ONE (11:04)
[2023-02-08] MEDS ORDERED: Heparin Sodium/0.45% NaCl 25,000 UNITS/500 ML BAG IV SCH (11:15)
== END 2023-02-08 11:45 ==
LOC: DL.ED 05:44
DX: I21.4 Non-ST elevation (NSTEMI) myocardial infarction (principal); J44.9 Chronic obstructive pulmonary disease, unspecified; E83.42 Hypomagnesemia; E87.29 Other acidosis; I11.0 Hypertensive heart disease with heart failure; I50.9 Heart failure, unspecified; Z87.891 Personal history of nicotine dependence; Z20.822 Contact with and (suspected) exposure to COVID-19; Z95.5 Presence of coronary angioplasty implant and graft; Z79.02 Long term (current) use of antithrombotics/antiplatelets; Z79.899 Other long term (current) drug therapy; Z88.5 Allergy status to narcotic agent
CPT/HCPCS: 0241U; 36415; 36600; 71045; 80053; 81001; 82803; 83605; 83735; 83880; 84145; 84484; 85025; 85610; 85730; 86140; 93005; 93010; 94640; 94660; 96365; 96366; 96368; 96375; 99285; 99285-25; A9270-GY; J1644; J1940; J2543; J2930; J3475; J3490; J7613-GY; J7620-GY

== ENCOUNTER 2023-03-07 15:34 | Observation (INO) | payer OTHER ==
[2023-03-07] MEDS ORDERED: Sodium Chloride 0.9% 10 ML Syringe FLUSH PRN (16:04)
[2023-03-07 16:35] LABS: BASOPHILS PERCENT AUTO 0.2 % (0.0-1.0); HEMATOCRIT 41.7 % (40.0-54.0); HEMOGLOBIN 13.8 g/dL (14.0-18.0); LYMPHOCYTES PERCENT AUTO 12.2 % (20.5-50.1); MEAN CORPUSCULAR HEMOGLOBIN 29.9 pg (27.0-34.0); MEAN CORPUSCULAR HGB CONC 33.1 g/dL (33.0-35.0); MEAN CORPUSCULAR VOLUME 90.3 fL (80-100); MONOCYTES PERCENT AUTO 3.6 % (2-8); PLATELET COUNT,PLT 162 10^3/uL (150-450); RED BLOOD CELL COUNT 4.62 10^6/uL (4.6-6.2); WHITE BLOOD CELL COUNT,WBC 6.5 10^3/uL (5.0-10.0)
[2023-03-07 16:58] LABS: INR 1.1 (0.9-1.2); PROTHROMBIN TIME 11.4 SEC (9.0-12.0); PTT,PARTIAL THROMBOPLSTIN TIME 23.6 SEC (22.0-34.0)
[2023-03-07 17:00] LABS: A/G RATIO 0.8; ALANINE AMINOTRANSFERASE,ALT 32 U/L (16-63); ALBUMIN 3.4 g/dL (3.4-5.0); ALKALINE PHOSPHATASE 158 U/L (46-116); AMYLASE 42 U/L (25-115); ANION GAP 8.3 mEq/L (7-13); ASPARTATE AMNIOTRANSFERASE,AST 35 U/L (15-37); B-TYPE NATRIURETIC PEPTIDE,BNP 93 pg/ml (0-100); BILIRUBIN TOTAL 0.7 mg/dL (0.2-1.0); BLOOD UREA NITROGEN,BUN 24 mg/dL (7-18); BUN/CREATININE RATIO 15.9 (No establ ref range); C-REACTIVE PROTEIN 0.59 ng/dL (<=0.50); CALCIUM 9.2 mg/dL (8.5-10.1); CARBON DIOXIDE,CO2 40 mmol/L (21-32); CHLORIDE,CL 94 mmol/L (98-107); CREATININE 1.51 mg/dL (0.70-1.30); EST CRCL DRUG DOSING (CG) 35.74 mL/min; GLUCOSE RANDOM 181 mg/dL (70-99); LIPASE 20 U/L (16-77); POTASSIUM,K 3.3 mmol/L (3.5-5.1); PROTEIN TOTAL,TP 7.9 g/dL (6.4-8.2); SODIUM,NA 139 mmol/L (136-145)
[2023-03-07 17:01] LABS: ESTIMATED GFR 46 mL/min (>=60)
[2023-03-07 17:02] LABS: MAGNESIUM 0.9 mg/dL (1.8-2.4)
[2023-03-07] MEDS ORDERED: Magnesium Sulfate/Water 2 GM in Premix Bag 1 BAG IV ONE ×2 (17:05→20:01)
[2023-03-07] MEDS ORDERED: Sodium Chloride 0.9% 1,000 ML IV ONE (17:05)
[2023-03-07 17:11] LABS: CORONAVIRUS COVID-19 NAA NEGATIVE (NEGATIVE); INFLUENZA A NAA NEGATIVE (NEGATIVE); INFLUENZA B NAA NEGATIVE (NEGATIVE); RESPIRATORY SYNCYTIAL VIR NAA NEGATIVE (NEGATIVE)
[2023-03-07] MEDS ORDERED: Iopamidol 612 MG/ML 100 ML Bottle IVPUSH ONE (17:18)
[2023-03-07] MEDS ORDERED: Albuterol/Ipratropium 3.0-0.5 MG/3 ML Neb Soln NEB PRN (19:55)
[2023-03-07] MEDS ORDERED: Acetaminophen 325 MG Tab PO PRN (19:55)
[2023-03-07] MEDS ORDERED: Ondansetron 4 MG/2 ML SDV IVPUSH PRN (19:55)
[2023-03-07] MEDS ORDERED: Ketorolac 30 MG/ML SDV IVPUSH PRN (19:58)
[2023-03-07] MEDS ORDERED: Potassium Chloride 10 MEQ Tab.ER PO ONE (20:02)
[2023-03-07] MEDS ORDERED: Potassium Chloride 20 MEQ in Premix Bag 1 BAG IV ONE (20:02)
[2023-03-07] MEDS ORDERED: Nitroglycerin 0.4 MG Tab.SL SL PRN (20:05)
[2023-03-07] MEDS ORDERED: Sodium Chloride 0.9% 1,500 ML IV SCH (20:15)
[2023-03-07] MEDS ORDERED: Latanoprost 0.005% Ophth Soln 2.5 ML Bottle EYEBOTH SCH (21:00)
[2023-03-07] MEDS ORDERED: Melatonin 3 MG Tab PO SCH (21:00)
[2023-03-07] MEDS ORDERED: Formoterol/Mometasone 200-5 MCG 8.8 GM Inhaler IH SCH (21:00)
[2023-03-07 22:26] LABS: T4 FREE 1.17 ng/dL (0.76-1.46); TSH ULTRASENSITIVE 0.49 uIU/mL (0.36-3.74)
[2023-03-07 23:08] LABS: APPEARANCE,URINE CLEAR (CLEAR); BILIRUBIN,URINE NEGATIVE (NEGATIVE); COLOR,URINE YELLOW (YELLOW); GLUCOSE,URINE NEGATIVE (NEGATIVE); KETONES,URINE NEGATIVE (NEGATIVE); LEUKOCYTE ESTERASE,URINE NEGATIVE (NEGATIVE); NITRITE,URINE NEGATIVE (NEGATIVE); OCCULT BLOOD,URINE TRACE-INTACT (NEGATIVE); PH,URINE 5.5 (5.0-9.0); PROTEIN,URINE TRACE (NEGATIVE); UROBILINOGEN,URINE 0.2 mg/dL (0.2-1.0)
[2023-03-07 23:25] LABS: BACTERIA,URINE FEW /HPF (0-FEW/HPF); EPITHELIAL CELLS,URINE FEW /HPF (NOT SEEN); HYALINE CASTS,URINE MODERATE; WBC,URINE 0-5 /HPF (0-5/HPF)
[2023-03-08] MEDS ORDERED: Magnesium Sulfate/Water 2 GM in Premix Bag 1 BAG IV ONE ×3 (05:00)
[2023-03-08] MEDS: Omeprazole 20 MG Cap.CR PO SCH ×2 (05:45→15:49)
[2023-03-08] MEDS: Formoterol/Mometasone 200-5 MCG 8.8 GM Inhaler IH SCH ×2 (06:29→17:20)
[2023-03-08 06:38] LABS: EOSINOPHILS PERCENT AUTO 1.3 % (1.0-3.0); HEMATOCRIT 36.5 % (40.0-54.0); HEMOGLOBIN 11.8 g/dL (14.0-18.0); LYMPHOCYTES PERCENT AUTO 23.8 % (20.5-50.1); MEAN CORPUSCULAR HEMOGLOBIN 29.5 pg (27.0-34.0); MEAN CORPUSCULAR HGB CONC 32.3 g/dL (33.0-35.0); MEAN CORPUSCULAR VOLUME 91.3 fL (80-100); MONOCYTES PERCENT AUTO 10.1 % (2-8); NEUTROPHILS PERCENT AUTO 64.8 % (42.2-75.2); PLATELET COUNT,PLT 130 10^3/uL (150-450); WHITE BLOOD CELL COUNT,WBC 6.2 10^3/uL (5.0-10.0)
[2023-03-08 07:09] LABS: ALANINE AMINOTRANSFERASE,ALT 27 U/L (16-63); ALKALINE PHOSPHATASE 127 U/L (46-116); ANION GAP 3.7 mEq/L (7-13); ASPARTATE AMNIOTRANSFERASE,AST 29 U/L (15-37); BILIRUBIN TOTAL 0.6 mg/dL (0.2-1.0); BLOOD UREA NITROGEN,BUN 20 mg/dL (7-18); CALCIUM 8.4 mg/dL (8.5-10.1); CHLORIDE,CL 100 mmol/L (98-107); EST CRCL DRUG DOSING (CG) 51.18 mL/min; GLUCOSE RANDOM 90 mg/dL (70-99); MAGNESIUM 2.9 mg/dL (1.8-2.4); POTASSIUM,K 3.7 mmol/L (3.5-5.1); PROTEIN TOTAL,TP 6.5 g/dL (6.4-8.2); SODIUM,NA 142 mmol/L (136-145)
[2023-03-08 07:13] LABS: A/G RATIO 0.86; C-REACTIVE PROTEIN < 0.50 ng/dL (<=0.50); CARBON DIOXIDE,CO2 42 mmol/L (21-32); ESTIMATED GFR 76 mL/min (>=60)
[2023-03-08] MEDS ORDERED: Metoprolol Tartrate 25 MG Tab PO SCH (09:00)
[2023-03-08] MEDS ORDERED: Isosorbide Mononitrate 30 MG Tab.ER PO SCH (09:00)
[2023-03-08] MEDS ORDERED: Loratadine 10 MG Tab PO SCH (09:00)
[2023-03-08] MEDS ORDERED: Clopidogrel 75 MG Tab PO SCH (09:00)
[2023-03-08 16:15] VITALS: BP 94/67; PULSE 67
== END 2023-03-08 19:15 | disposition home or self-care (01) ==
LOC: DL.ED 15:34 → DL.MS 18:22
PROVIDERS: ADMIT Internal Medicine; ATTEND Internal Medicine
DX: E83.42 Hypomagnesemia (principal); K52.9 Noninfective gastroenteritis and colitis, unspecified; I47.11 Inappropriate sinus tachycardia, so stated; E11.65 Type 2 diabetes mellitus with hyperglycemia; J44.9 Chronic obstructive pulmonary disease, unspecified; Z79.899 Other long term (current) drug therapy; Z79.51 Long term (current) use of inhaled steroids; Z79.818 Long term (current) use of other agents affecting estrogen receptors and estrogen levels; Z79.891 Long term (current) use of opiate analgesic; Z79.1 Long term (current) use of non-steroidal anti-inflammatories (NSAID)
CPT/HCPCS: 0241U; 36415; 71045; 74177; 80053; 81001; 82150; 82306; 83605; 83690; 83735; 83880; 84145; 84439; 84443; 84484; 85025; 85610; 85730; 86140; 87040; 87086; 93005; 93010; 94010; 94664; 94760; 96361; 96365; 96366; 96367; 99284; 99285; A9270; G0378; J3475; J3480; J7030; Q9967

== ENCOUNTER 2023-06-04 15:11 | Emergency (ER) | payer MEDICARE, OTHER ==
[2023-06-04] MEDS: Sodium Chloride 0.9% 10 ML Syringe FLUSH PRN (16:55)
[2023-06-04 17:05] LABS: BASOPHILS PERCENT AUTO 0.1 % (0.0-1.0); EOSINOPHILS PERCENT AUTO 1.1 % (1.0-3.0); HEMATOCRIT 40.9 % (40.0-54.0); HEMOGLOBIN 13.6 g/dL (14.0-18.0); LYMPHOCYTES PERCENT AUTO 10.8 % (20.5-50.1); MEAN CORPUSCULAR HEMOGLOBIN 30.7 pg (27.0-34.0); MEAN CORPUSCULAR HGB CONC 33.3 g/dL (33.0-35.0); MEAN CORPUSCULAR VOLUME 92.3 fL (80-100); MONOCYTES PERCENT AUTO 9.4 % (2-8); NEUTROPHILS PERCENT AUTO 78.6 % (42.2-75.2); PLATELET COUNT,PLT 218 10^3/uL (150-450); RED BLOOD CELL COUNT 4.43 10^6/uL (4.6-6.2); WHITE BLOOD CELL COUNT,WBC 9.7 10^3/uL (5.0-10.0)
[2023-06-04] MEDS: Sodium Chloride 0.9% 1,000 ML IV ONE ×2 (17:09→19:34)
[2023-06-04 17:10] VITALS: BP 122/70; PULSE 88
[2023-06-04 17:27] LABS: ALANINE AMINOTRANSFERASE,ALT 29 U/L (16-63); ALBUMIN 3.3 g/dL (3.4-5.0); ALKALINE PHOSPHATASE 126 U/L (46-116); ASPARTATE AMNIOTRANSFERASE,AST 33 U/L (15-37); BLOOD UREA NITROGEN,BUN 18 mg/dL (7-18); BUN/CREATININE RATIO 16.5 (No establ ref range); CALCIUM 8.9 mg/dL (8.5-10.1); CHLORIDE,CL 90 mmol/L (98-107); CREATININE 1.09 mg/dL (0.70-1.30); EST CRCL DRUG DOSING (CG) 45.09 mL/min; GLUCOSE RANDOM 117 mg/dL (70-99); LIPASE 16 U/L (16-77); POTASSIUM,K 3.9 mmol/L (3.5-5.1); PROTEIN TOTAL,TP 7.2 g/dL (6.4-8.2); SODIUM,NA 142 mmol/L (136-145)
[2023-06-04 17:40] LABS: A/G RATIO 0.85; ANION GAP 10.89999 mEq/L (7-13); CARBON DIOXIDE,CO2 > 45 mmol/L (21-32); ESTIMATED GFR 68 mL/min (>=60)
[2023-06-04] MEDS: Iopamidol 612 MG/ML 100 ML Bottle IVPUSH ONE (18:53)
[2023-06-04] MEDS: methylPREDNISolone Sodium Succinate 125 MG/2 ML SDV IVPUSH ONE (19:45)
== END 2023-06-04 20:54 | disposition home or self-care (01) ==
LOC: DL.ED 15:11
DX: K52.9 Noninfective gastroenteritis and colitis, unspecified (principal); N32.89 Other specified disorders of bladder; I11.0 Hypertensive heart disease with heart failure; J44.9 Chronic obstructive pulmonary disease, unspecified; E78.00 Pure hypercholesterolemia, unspecified; I50.9 Heart failure, unspecified; Z95.5 Presence of coronary angioplasty implant and graft
CPT/HCPCS: 36415; 71045; 74177; 80053; 83605; 83690; 85025; 96361; 96374; 99284; 99284-25; J2930; J3490; J7030; Q9967

== ENCOUNTER 2023-06-08 19:03 | Inpatient (IN) | payer MEDICARE, OTHER ==
[2023-06-08 19:23] LABS: EOSINOPHILS PERCENT AUTO 0.1 % (1.0-3.0); HEMATOCRIT 48.6 % (40.0-54.0); HEMOGLOBIN 15.5 g/dL (14.0-18.0); LYMPHOCYTES PERCENT AUTO 5.8 % (20.5-50.1); MEAN CORPUSCULAR HEMOGLOBIN 30.4 pg (27.0-34.0); MEAN CORPUSCULAR HGB CONC 31.9 g/dL (33.0-35.0); MEAN CORPUSCULAR VOLUME 95.3 fL (80-100); MONOCYTES PERCENT AUTO 6.2 % (2-8); NEUTROPHILS PERCENT AUTO 87.9 % (42.2-75.2); PLATELET COUNT,PLT 141 10^3/uL (150-450); WHITE BLOOD CELL COUNT,WBC 7.3 10^3/uL (5.0-10.0)
[2023-06-08 19:40] LABS: INR 1.3 (0.9-1.2); PROTHROMBIN TIME 13.1 SEC (9.0-12.0)
[2023-06-08] MEDS: Sodium Chloride 0.9% 10 ML Syringe FLUSH PRN (19:47)
[2023-06-08] MEDS: Sodium Chloride 0.9% 500 ML IV SCH ×2 (19:47→21:57)
[2023-06-08 19:50] LABS: LACTIC ACID 5.7 mmol/L (0.4-2.0)
[2023-06-08 19:51] LABS: ALANINE AMINOTRANSFERASE,ALT 27 U/L (16-63); ALBUMIN 3.2 g/dL (3.4-5.0); ALKALINE PHOSPHATASE 122 U/L (46-116); ASPARTATE AMNIOTRANSFERASE,AST 32 U/L (15-37); BILIRUBIN TOTAL 1.2 mg/dL (0.2-1.0); BLOOD UREA NITROGEN,BUN 16 mg/dL (7-18); BUN/CREATININE RATIO 14.2 (No establ ref range); CALCIUM 8.9 mg/dL (8.5-10.1); CHLORIDE,CL 93 mmol/L (98-107); CREATININE 1.13 mg/dL (0.70-1.30); EST CRCL DRUG DOSING (CG) 44.36 mL/min; GLUCOSE RANDOM 199 mg/dL (70-99); LIPASE 18 U/L (16-77); MAGNESIUM 1.1 mg/dL (1.8-2.4); POTASSIUM,K 3.9 mmol/L (3.5-5.1); PROTEIN TOTAL,TP 7.2 g/dL (6.4-8.2); SODIUM,NA 144 mmol/L (136-145)
[2023-06-08 20:11] LABS: ANION GAP 9.89999 mEq/L (7-13); CARBON DIOXIDE,CO2 > 45 mmol/L (21-32); ESTIMATED GFR 65 mL/min (>=60); ETHANOL BLOOD MEDICAL < 3 mg/dL (0)
[2023-06-08] MEDS: diphenhydrAMINE 50 MG/ML SDV IVPUSH ONE (20:18)
[2023-06-08 20:31] LABS: O2 DELIVERY DEVICE NASAL CANNULA
[2023-06-08 20:35] LABS: BICARBONATE,VENOUS 53 mmol/l (19-25); O2 SATURATION VENOUS 36.5 % (60-80); PH,VENOUS 7.29 (7.31-7.41); PO2 VENOUS 26 mmHg (35-42)
[2023-06-08] MEDS: Iopamidol 612 MG/ML 100 ML Bottle IVPUSH ONE (20:35)
[2023-06-08 20:37] LABS: PCO2 VENOUS 114 mmHg (41-51)
[2023-06-08 20:51] LABS: CORONAVIRUS COVID-19 NAA NEGATIVE (NEGATIVE); INFLUENZA A NAA NEGATIVE (NEGATIVE); INFLUENZA B NAA NEGATIVE (NEGATIVE)
[2023-06-08] MEDS: Magnesium Sulfate/Water 2 GM in Premix Bag 1 BAG IV ONE (21:57)
[2023-06-08] MEDS ORDERED: Magnesium Hydroxide 400 MG/5 ML Susp 30 ML Cup PO PRN (23:17)
[2023-06-08] MEDS ORDERED: Sennosides/Docusate Sodium 50-8.6 MG Tab PO PRN (23:17)
[2023-06-08] MEDS ORDERED: Polyethylene Glycol 3350 Powder 17 GM Packet PO PRN (23:17)
[2023-06-08] MEDS ORDERED: Acetaminophen/oxyCODONE 325-5 MG Tab PO PRN (23:17)
[2023-06-08] MEDS ORDERED: Albuterol/Ipratropium 3.0-0.5 MG/3 ML Neb Soln NEB PRN (23:17)
[2023-06-08] MEDS ORDERED: Naloxone 2 MG/2 ML Syringe IVPUSH PRN (23:17)
[2023-06-08] MEDS ORDERED: Ondansetron 4 MG/2 ML SDV IVPUSH PRN (23:17)
[2023-06-08] MEDS ORDERED: HYDROmorphone 0.5 MG/0.5 ML Syringe IVPUSH PRN (23:17)
[2023-06-08] MEDS ORDERED: Acetaminophen 325 MG Tab PO PRN (23:17)
[2023-06-08] MEDS ORDERED: 50% Dextrose in Water 50 ML Syringe IVPUSH PRN (23:24)
[2023-06-08] MEDS ORDERED: Glucagon,Human Recombinant 1 MG Vial IM PRN (23:24)
[2023-06-08] MEDS ORDERED: Metoprolol Tartrate 5 MG/5 ML SDV IVPUSH PRN (23:26)
[2023-06-08] MEDS ORDERED: hydrALAZINE 20 MG/ML SDV IVPUSH PRN (23:26)
[2023-06-08] MEDS ORDERED: Heparin Sodium/0.45% NaCl 25,000 UNITS/500 ML BAG IV SCH (23:30)
[2023-06-08] MEDS ORDERED: guaiFENesin/Dextromethorphan 100-10 MG/5 ML Soln 5 ML Cup PO PRN (23:40)
[2023-06-09 01:01] LABS: APPEARANCE,URINE SLIGHTLY CLOUDY (CLEAR); BILIRUBIN,URINE SMALL (NEGATIVE); COLOR,URINE YELLOW (YELLOW); GLUCOSE,URINE NEGATIVE (NEGATIVE); KETONES,URINE TRACE (NEGATIVE); LEUKOCYTE ESTERASE,URINE NEGATIVE (NEGATIVE); NITRITE,URINE NEGATIVE (NEGATIVE); OCCULT BLOOD,URINE LARGE (NEGATIVE); PROTEIN,URINE 30 (NEGATIVE)
[2023-06-09] MEDS: Magnesium Sulfate/Water 2 GM in Premix Bag 1 BAG IV ONE ×3 (01:12→08:56)
[2023-06-09] MEDS: Azithromycin 500 MG in Sodium Chloride 0.9% 250 ML IV ONE (01:12)
[2023-06-09] MEDS: methylPREDNISolone Sodium Succinate 125 MG/2 ML SDV IVPUSH SCH (01:14)
[2023-06-09] MEDS: Heparin Sodium 5,000 Units/ML Vial IVPUSH STA ×2 (01:16→01:20)
[2023-06-09] MEDS: acetaZOLAMIDE 500 MG Vial IVPUSH ONE (01:19)
[2023-06-09 01:21] LABS: AMORPHOUS SEDIMENT,URINE FEW /HPF (NOT SEEN); BACTERIA,URINE FEW /HPF (0-FEW/HPF); EPITHELIAL CELLS,URINE FEW /HPF (NOT SEEN); HYALINE CASTS,URINE FEW; MUCUS,URINE MODERATE /LPF (NOT SEEN)
[2023-06-09] MEDS: guaiFENesin 600 MG Tab.ER PO ONE (01:21)
[2023-06-09] MEDS: Aspirin 81 MG Tab.Chew PO ONE (01:21)
[2023-06-09] MEDS: Water For Injection, Sterile 10 ML ONE (01:22)
[2023-06-09] MEDS: Heparin Sodium/0.45% NaCl 25,000 UNITS/500 ML BAG IV SCH (01:28)
[2023-06-09] MEDS: Aminophylline 500 MG in Sodium Chloride 0.9% 500 ML IV SCH (01:32)
[2023-06-09] MEDS: Pantoprazole 40 MG Vial IVPUSH ONE (01:32)
[2023-06-09] MEDS: Lactated Ringers 1,000 ML IV SCH (02:43)
[2023-06-09] MEDS: Pantoprazole 40 MG Tab.CR PO SCH (05:49)
[2023-06-09 06:47] LABS: ALANINE AMINOTRANSFERASE,ALT 22 U/L (16-63); ALBUMIN 2.8 g/dL (3.4-5.0); ALKALINE PHOSPHATASE 91 U/L (46-116); ASPARTATE AMNIOTRANSFERASE,AST 40 U/L (15-37); BILIRUBIN TOTAL 0.8 mg/dL (0.2-1.0); BLOOD UREA NITROGEN,BUN 17 mg/dL (7-18); BUN/CREATININE RATIO 17.9 (No establ ref range); C-REACTIVE PROTEIN 1.02 ng/dL (<=0.50); CALCIUM 8.2 mg/dL (8.5-10.1); CHLORIDE,CL 95 mmol/L (98-107); CHOLESTEROL HDL 62 mg/dL (40-59); CHOLESTEROL LDL CALCULATED 41 mg/dL (0-100); CHOLESTEROL TOTAL 116 mg/dL (0-199); CREATININE 0.95 mg/dL (0.70-1.30); EST CRCL DRUG DOSING (CG) 51.69 mL/min; GLUCOSE RANDOM 194 mg/dL (70-99); MAGNESIUM 2.4 mg/dL (1.8-2.4); POTASSIUM,K 3.3 mmol/L (3.5-5.1); SODIUM,NA 139 mmol/L (136-145); TRIGLYCERIDES 67 mg/dL (0-149)
[2023-06-09 07:03] LABS: MEAN CORPUSCULAR HEMOGLOBIN 30.3 pg (27.0-34.0); MEAN CORPUSCULAR HGB CONC 31.6 g/dL (33.0-35.0); PLATELET COUNT,PLT 115 10^3/uL (150-450); RED BLOOD CELL COUNT 3.96 10^6/uL (4.6-6.2); WHITE BLOOD CELL COUNT,WBC 7.3 10^3/uL (5.0-10.0)
[2023-06-09 07:13] LABS: A/G RATIO 0.88; ANION GAP 2.29999 mEq/L (7-13); CARBON DIOXIDE,CO2 > 45 mmol/L (21-32); ESTIMATED GFR 80 mL/min (>=60)
[2023-06-09 07:28] LABS: LYMPHOCYTES PERCENT AUTO 10.7 % (20.5-50.1); MONOCYTES PERCENT AUTO 1.1 % (2-8); NEUTROPHILS PERCENT AUTO 88.2 % (42.2-75.2)
[2023-06-09 07:57] LABS: BAND PERCENT MAN 3 %; BASOPHILS PERCENT MAN 0; EOSINOPHILS PERCENT MAN 0 % (1-3); LYMPHOCYTES PERCENT MAN 7 % (20-50); MONOCYTES PERCENT MAN 1 % (2-8); SEG NEUTROPHILS PERCENT MAN 89 % (42-75)
[2023-06-09] MEDS: Formoterol/Mometasone 200-5 MCG 8.8 GM Inhaler IH SCH (08:21)
[2023-06-09] MEDS: Tiotropium Bromide 4 GM Inhalation Spray (2.5mcg/1 dose; 10 doses) INH SCH (08:21)
[2023-06-09] MEDS: Azithromycin 500 MG in Sodium Chloride 0.9% 250 ML IV SCH (08:49)
[2023-06-09] MEDS: Isosorbide Mononitrate 30 MG Tab.ER PO SCH (08:52)
[2023-06-09] MEDS: Metoprolol Succinate 25 MG Tab.ER PO SCH (08:53)
[2023-06-09] MEDS: guaiFENesin 600 MG Tab.ER PO SCH (08:53)
[2023-06-09] MEDS: Aspirin 81 MG Tab.Chew PO SCH (08:53)
[2023-06-09] MEDS: Empagliflozin 25 MG Tab PO SCH (08:54)
[2023-06-09] MEDS: Saccharomyces Boulardii (Probiotic) 250 MG Cap PO SCH (08:54)
[2023-06-09] MEDS: acetaZOLAMIDE 500 MG Vial IVPUSH SCH (08:58)
[2023-06-09] MEDS: Insulin Lispro 100 Units/ML 3 ML Vial SUBCUT SCH (09:08)
[2023-06-09] MEDS: Potassium Chloride 10 MEQ Tab.ER PO ONE ×2 (11:41→14:31)
[2023-06-09] MEDS ORDERED: Sodium Chloride 0.9% 1,000 ML IV SCH (13:00)
[2023-06-09] MEDS: Heparin Sodium 5,000 Units/ML Vial IVPUSH ONE (16:55)
[2023-06-09] MEDS: ACETAZOLAMIDE IVPUSH SCH (21:20)
[2023-06-09] MEDS: WATER FOR INJECTION IVPUSH SCH (21:20)
[2023-06-09] MEDS: STERILE IVPUSH SCH (21:20)
[2023-06-09] MEDS: Loratadine 10 MG Tab PO SCH (21:20)
[2023-06-10 06:53] LABS: ALBUMIN 2.5 g/dL (3.4-5.0); ANION GAP 3.5 mEq/L (7-13); BILIRUBIN TOTAL 0.6 mg/dL (0.2-1.0); CALCIUM 7.8 mg/dL (8.5-10.1); EST CRCL DRUG DOSING (CG) 49.11 mL/min; MAGNESIUM 2.1 mg/dL (1.8-2.4); POTASSIUM,K 3.5 mmol/L (3.5-5.1); PROTEIN TOTAL,TP 5.3 g/dL (6.4-8.2)
[2023-06-10 07:05] LABS: A/G RATIO 0.89
[2023-06-10 07:11] LABS: HEMATOCRIT 31.7 % (40.0-54.0); HEMOGLOBIN 10.3 g/dL (14.0-18.0); LYMPHOCYTES PERCENT AUTO 4.2 % (20.5-50.1); MEAN CORPUSCULAR HEMOGLOBIN 30.8 pg (27.0-34.0); MEAN CORPUSCULAR HGB CONC 32.5 g/dL (33.0-35.0); MEAN CORPUSCULAR VOLUME 94.9 fL (80-100); MONOCYTES PERCENT AUTO 1.9 % (2-8); NEUTROPHILS PERCENT AUTO 93.9 % (42.2-75.2); PLATELET COUNT,PLT 96 10^3/uL (150-450); RED BLOOD CELL COUNT 3.34 10^6/uL (4.6-6.2); WHITE BLOOD CELL COUNT,WBC 11.6 10^3/uL (5.0-10.0)
[2023-06-10] MEDS: acetaZOLAMIDE 500 MG Vial IV SCH (10:54)
[2023-06-10] MEDS: Latanoprost 0.005% Ophth Soln 2.5 ML Bottle EYEBOTH SCH (20:53)
[2023-06-10] MEDS: acetaZOLAMIDE 500 MG Vial IVPUSH SCH (20:53)
[2023-06-10] MEDS: Midodrine 5 MG Tab PO PRN (21:32)
[2023-06-10] MEDS: Heparin Sodium 5,000 Units/ML Vial IVPUSH ONE (22:53)
[2023-06-11 05:11] LABS: BASOPHILS PERCENT AUTO 0.1 % (0.0-1.0); HEMATOCRIT 32.8 % (40.0-54.0); HEMOGLOBIN 10.5 g/dL (14.0-18.0); LYMPHOCYTES PERCENT AUTO 3.1 % (20.5-50.1); MEAN CORPUSCULAR HEMOGLOBIN 30.2 pg (27.0-34.0); MEAN CORPUSCULAR VOLUME 94.3 fL (80-100); MONOCYTES PERCENT AUTO 1.8 % (2-8); PLATELET COUNT,PLT 103 10^3/uL (150-450); RED BLOOD CELL COUNT 3.48 10^6/uL (4.6-6.2); WHITE BLOOD CELL COUNT,WBC 16.3 10^3/uL (5.0-10.0)
[2023-06-11 05:29] LABS: ALBUMIN 2.5 g/dL (3.4-5.0); ANION GAP 4.2 mEq/L (7-13); BILIRUBIN TOTAL 0.5 mg/dL (0.2-1.0); BUN/CREATININE RATIO 23.5 (No establ ref range); CREATININE 0.98 mg/dL (0.70-1.30); EST CRCL DRUG DOSING (CG) 50.11 mL/min; MAGNESIUM 1.8 mg/dL (1.8-2.4); POTASSIUM,K 3.2 mmol/L (3.5-5.1); PROTEIN TOTAL,TP 5.3 g/dL (6.4-8.2)
[2023-06-11 06:27] LABS: A/G RATIO 0.89
[2023-06-11] MEDS: Potassium Chloride 10 MEQ Tab.ER PO ONE (10:15)
[2023-06-12] MEDS: predniSONE 20 MG Tab PO SCH (10:13)
[2023-06-12] MEDS: Theophylline 300 MG Tab.ER PO SCH (10:13)
[2023-06-13 09:42] LABS: BASOPHILS PERCENT AUTO 0.1 % (0.0-1.0); EOSINOPHILS PERCENT AUTO 0.7 % (1.0-3.0); HEMATOCRIT 35.2 % (40.0-54.0); LYMPHOCYTES PERCENT AUTO 12.9 % (20.5-50.1); MEAN CORPUSCULAR HEMOGLOBIN 30.5 pg (27.0-34.0); MEAN CORPUSCULAR HGB CONC 31.3 g/dL (33.0-35.0); MEAN CORPUSCULAR VOLUME 97.5 fL (80-100); MONOCYTES PERCENT AUTO 11.2 % (2-8); NEUTROPHILS PERCENT AUTO 75.1 % (42.2-75.2); PLATELET COUNT,PLT 92 10^3/uL (150-450); RED BLOOD CELL COUNT 3.61 10^6/uL (4.6-6.2); WHITE BLOOD CELL COUNT,WBC 8.2 10^3/uL (5.0-10.0)
[2023-06-13 09:50] LABS: ANION GAP 3.5 mEq/L (7-13); CALCIUM 8.4 mg/dL (8.5-10.1); CREATININE 0.93 mg/dL (0.70-1.30); EST CRCL DRUG DOSING (CG) 57.76 mL/min; POTASSIUM,K 4.5 mmol/L (3.5-5.1)
[2023-06-14] MEDS: Lisinopril 5 MG Tab PO SCH (12:41)
[2023-06-14] MEDS: atorvaSTATin 10 MG Tab PO SCH (20:03)
[2023-06-14] MEDS: Melatonin 3 MG Tab PO PRN (20:05)
[2023-06-15 06:44] LABS: CALCIUM 8.1 mg/dL (8.5-10.1); CREATININE 0.86 mg/dL (0.70-1.30); EST CRCL DRUG DOSING (CG) 66.96 mL/min; MAGNESIUM 1.5 mg/dL (1.8-2.4)
[2023-06-15 06:46] LABS: CHOLESTEROL HDL 70 mg/dL (40-59); CHOLESTEROL LDL CALCULATED 80 mg/dL (0-100); CHOLESTEROL TOTAL 166 mg/dL (0-199); TRIGLYCERIDES 81 mg/dL (0-149)
[2023-06-15 06:52] LABS: HEMATOCRIT 32.1 % (40.0-54.0); HEMOGLOBIN 9.9 g/dL (14.0-18.0); LYMPHOCYTES PERCENT AUTO 12.2 % (20.5-50.1); MEAN CORPUSCULAR HEMOGLOBIN 30.5 pg (27.0-34.0); MEAN CORPUSCULAR HGB CONC 30.8 g/dL (33.0-35.0); MEAN CORPUSCULAR VOLUME 98.8 fL (80-100); MONOCYTES PERCENT AUTO 8.2 % (2-8); NEUTROPHILS PERCENT AUTO 78.6 % (42.2-75.2); PLATELET COUNT,PLT 84 10^3/uL (150-450); RED BLOOD CELL COUNT 3.25 10^6/uL (4.6-6.2); WHITE BLOOD CELL COUNT,WBC 8.9 10^3/uL (5.0-10.0)
[2023-06-15 13:25] VITALS: BP 138/50; PULSE 73
== END 2023-06-15 13:20 | disposition home health service (06) | DRG 280 ==
LOC: DL.ED 19:03 → DL.MS 22:10
PROVIDERS: ADMIT Internal Medicine; ATTEND Emergency Medicine
PROC: 5A09357 Assistance with Respiratory Ventilation, Less than 24 Consecutive Hours, Continuous Positive Airway Pressure (ICD-10-PCS; principal; 2023-06-08)
PROC: 5A09357 Assistance with Respiratory Ventilation, Less than 24 Consecutive Hours, Continuous Positive Airway Pressure (ICD-10-PCS; 2023-06-13)
DX: I21.4 Non-ST elevation (NSTEMI) myocardial infarction (principal); J96.21 Acute and chronic respiratory failure with hypoxia; J96.22 Acute and chronic respiratory failure with hypercapnia; J44.1 Chronic obstructive pulmonary disease with (acute) exacerbation; D68.9 Coagulation defect, unspecified; J96.02 Acute respiratory failure with hypercapnia; K52.9 Noninfective gastroenteritis and colitis, unspecified; Z66 Do not resuscitate; R53.1 Weakness; R79.89 Other specified abnormal findings of blood chemistry; E87.20 Acidosis, unspecified; K21.9 Gastro-esophageal reflux disease without esophagitis; I25.10 Atherosclerotic heart disease of native coronary artery without angina pectoris; F32.A Depression, unspecified; G47.00 Insomnia, unspecified; E78.00 Pure hypercholesterolemia, unspecified; R63.4 Abnormal weight loss; D69.6 Thrombocytopenia, unspecified; E87.6 Hypokalemia; E11.65 Type 2 diabetes mellitus with hyperglycemia; N32.89 Other specified disorders of bladder; E87.8 Other disorders of electrolyte and fluid balance, not elsewhere classified; E80.6 Other disorders of bilirubin metabolism; R33.9 Retention of urine, unspecified; E83.42 Hypomagnesemia; Z95.5 Presence of coronary angioplasty implant and graft; I11.0 Hypertensive heart disease with heart failure; Z87.891 Personal history of nicotine dependence; Z99.81 Dependence on supplemental oxygen; Z98.41 Cataract extraction status, right eye; Z98.42 Cataract extraction status, left eye; I50.9 Heart failure, unspecified; J44.9 Chronic obstructive pulmonary disease, unspecified; Z88.5 Allergy status to narcotic agent; Z79.899 Other long term (current) drug therapy
CPT/HCPCS: 0240U; 36415; 51798; 71045; 74177; 80048; 80053; 80061; 80198; 80307; 81001; 82550; 82803; 82947; 83605; 83690; 83735; 83880; 84484; 85025; 85610; 85730; 86140; 87040; 87070; 87205; 93005; 93010; 93306; 94640; 94660; 94664; 94760; 96361; 96374; 96375; 97161-GP; 97165-GO; 97530-GO; 99285; 99285-25; A9270-GY; C9113; J0280; J0456; J1120; J1200; J1644; J1815-GY; J2930; J3475; J3490; J7040; J7050; J7120; J7512; Q9967

== ENCOUNTER 2023-06-19 01:43 | Emergency (ER) | payer MEDICARE, OTHER ==
[2023-06-19 02:11] LABS: BASOPHILS PERCENT AUTO 0.1 % (0.0-1.0); EOSINOPHILS PERCENT AUTO 1.1 % (1.0-3.0); HEMATOCRIT 42.8 % (40.0-54.0); HEMOGLOBIN 13.2 g/dL (14.0-18.0); LYMPHOCYTES PERCENT AUTO 8.3 % (20.5-50.1); MEAN CORPUSCULAR HEMOGLOBIN 30.1 pg (27.0-34.0); MEAN CORPUSCULAR HGB CONC 30.8 g/dL (33.0-35.0); MEAN CORPUSCULAR VOLUME 97.7 fL (80-100); MONOCYTES PERCENT AUTO 5.8 % (2-8); NEUTROPHILS PERCENT AUTO 84.7 % (42.2-75.2); PLATELET COUNT,PLT 110 10^3/uL (150-450); RED BLOOD CELL COUNT 4.38 10^6/uL (4.6-6.2)
[2023-06-19 02:30] LABS: ALANINE AMINOTRANSFERASE,ALT 52 U/L (16-63); ALBUMIN 2.7 g/dL (3.4-5.0); ALKALINE PHOSPHATASE 153 U/L (46-116); ASPARTATE AMNIOTRANSFERASE,AST 42 U/L (15-37); BILIRUBIN TOTAL 0.5 mg/dL (0.2-1.0); BLOOD UREA NITROGEN,BUN 17 mg/dL (7-18); BUN/CREATININE RATIO 18.9 (No establ ref range); CALCIUM 8.1 mg/dL (8.5-10.1); CHLORIDE,CL 101 mmol/L (98-107); EST CRCL DRUG DOSING (CG) 59.23 mL/min; GLUCOSE RANDOM 184 mg/dL (70-99); LIPASE 26 U/L (16-77); POTASSIUM,K 3.4 mmol/L (3.5-5.1); PROTEIN TOTAL,TP 6.3 g/dL (6.4-8.2); SODIUM,NA 145 mmol/L (136-145)
[2023-06-19 02:32] LABS: B-TYPE NATRIURETIC PEPTIDE,BNP 117 pg/ml (0-100)
[2023-06-19 02:39] LABS: A/G RATIO 0.75; ESTIMATED GFR 85 mL/min (>=60)
[2023-06-19 02:41] LABS: ANION GAP 2.39999 mEq/L (7-13); CARBON DIOXIDE,CO2 > 45 mmol/L (21-32)
[2023-06-19] MEDS: Iopamidol 612 MG/ML 100 ML Bottle IVPUSH ONE (02:49)
[2023-06-19 02:54] LABS: CORONAVIRUS COVID-19 NAA NEGATIVE (NEGATIVE); INFLUENZA A NAA NEGATIVE (NEGATIVE); INFLUENZA B NAA NEGATIVE (NEGATIVE); RESPIRATORY SYNCYTIAL VIR NAA NEGATIVE (NEGATIVE)
[2023-06-19 03:49] LABS: APPEARANCE,URINE CLEAR (CLEAR); BILIRUBIN,URINE NEGATIVE (NEGATIVE); COLOR,URINE YELLOW (YELLOW); GLUCOSE,URINE 500 (NEGATIVE); KETONES,URINE NEGATIVE (NEGATIVE); LEUKOCYTE ESTERASE,URINE NEGATIVE (NEGATIVE); NITRITE,URINE NEGATIVE (NEGATIVE); OCCULT BLOOD,URINE TRACE-LYSED (NEGATIVE); PH,URINE 5.5 (5.0-9.0); PROTEIN,URINE NEGATIVE (NEGATIVE); UROBILINOGEN,URINE 0.2 mg/dL (0.2-1.0)
[2023-06-19 03:56] LABS: AMORPHOUS SEDIMENT,URINE RARE /HPF (NOT SEEN); BACTERIA,URINE RARE /HPF (0-FEW/HPF); EPITHELIAL CELLS,URINE RARE /HPF (NOT SEEN); MUCUS,URINE RARE /LPF (NOT SEEN); RBC,URINE 0-5 /HPF (0-5); WBC,URINE 0-5 /HPF (0-5/HPF)
[2023-06-19] MEDS: Ketorolac 30 MG/ML SDV IVPUSH ONE (04:01)
[2023-06-19 04:36] VITALS: BP 105/45; PULSE 69
== END 2023-06-19 05:35 | disposition home or self-care (01) ==
LOC: DL.ED 01:43
DX: J18.9 Pneumonia, unspecified organism (principal); J44.9 Chronic obstructive pulmonary disease, unspecified; E87.29 Other acidosis; R10.84 Generalized abdominal pain; R79.89 Other specified abnormal findings of blood chemistry; I11.0 Hypertensive heart disease with heart failure; I50.9 Heart failure, unspecified; E78.00 Pure hypercholesterolemia, unspecified; Z88.5 Allergy status to narcotic agent; Z88.8 Allergy status to other drugs, medicaments and biological substances; Z95.5 Presence of coronary angioplasty implant and graft; Z79.51 Long term (current) use of inhaled steroids; Z79.899 Other long term (current) drug therapy; Z79.02 Long term (current) use of antithrombotics/antiplatelets
CPT/HCPCS: 0241U; 36415; 71045; 74177; 80053; 81001; 83690; 83880; 84484; 85025; 93005; 96374; 99285; J1885; Q9967

== ENCOUNTER 2023-06-20 01:03 | Observation (INO) | payer OTHER ==
[2023-06-20] MEDS: Albuterol/Ipratropium 3.0-0.5 MG/3 ML Neb Soln NEB ONE (02:11)
[2023-06-20] MEDS: Ketorolac 30 MG/ML SDV IVPUSH ONE (02:11)
[2023-06-20] MEDS: Sodium Chloride 0.9% 1,000 ML IV SCH (02:11)
[2023-06-20 02:15] LABS: EOSINOPHILS PERCENT AUTO 0.8 % (1.0-3.0); HEMATOCRIT 36.1 % (40.0-54.0); HEMOGLOBIN 11.1 g/dL (14.0-18.0); LYMPHOCYTES PERCENT AUTO 5.8 % (20.5-50.1); MEAN CORPUSCULAR HEMOGLOBIN 30.5 pg (27.0-34.0); MEAN CORPUSCULAR HGB CONC 30.7 g/dL (33.0-35.0); MEAN CORPUSCULAR VOLUME 99.2 fL (80-100); MONOCYTES PERCENT AUTO 5.8 % (2-8); NEUTROPHILS PERCENT AUTO 87.6 % (42.2-75.2); PLATELET COUNT,PLT 100 10^3/uL (150-450); RED BLOOD CELL COUNT 3.64 10^6/uL (4.6-6.2); WHITE BLOOD CELL COUNT,WBC 10.3 10^3/uL (5.0-10.0)
[2023-06-20 02:34] LABS: ALANINE AMINOTRANSFERASE,ALT 42 U/L (16-63); ALBUMIN 2.2 g/dL (3.4-5.0); ALKALINE PHOSPHATASE 116 U/L (46-116); ASPARTATE AMNIOTRANSFERASE,AST 33 U/L (15-37); BILIRUBIN TOTAL 0.4 mg/dL (0.2-1.0); BLOOD UREA NITROGEN,BUN 15 mg/dL (7-18); CALCIUM 7.7 mg/dL (8.5-10.1); CHLORIDE,CL 102 mmol/L (98-107); CREATININE 0.75 mg/dL (0.70-1.30); EST CRCL DRUG DOSING (CG) 71.32 mL/min; GLUCOSE RANDOM 119 mg/dL (70-99); LIPASE 23 U/L (16-77); POTASSIUM,K 3.2 mmol/L (3.5-5.1); PROTEIN TOTAL,TP 5.3 g/dL (6.4-8.2); SODIUM,NA 141 mmol/L (136-145)
[2023-06-20 02:36] LABS: B-TYPE NATRIURETIC PEPTIDE,BNP 140 pg/ml (0-100)
[2023-06-20 02:41] LABS: A/G RATIO 0.71; ANION GAP -2.80001 mEq/L (7-13); CARBON DIOXIDE,CO2 > 45 mmol/L (21-32); ESTIMATED GFR 90 mL/min (>=60)
[2023-06-20 02:59] LABS: O2 DELIVERY DEVICE NASAL CANNULA
[2023-06-20 03:05] LABS: PCO2 ARTERIAL 65 mmHg (35-48); PH,ARTERIAL 7.36 pH (7.35-7.45)
[2023-06-20 03:06] LABS: ALLEN TEST POSITIVE; BASE EXCESS ARTERIAL 11 mmol/L ((-2)-(+3)); BICARBONATE,ARTERIAL 37 mmol/L (21-28); O2 SATURATION ARTERIAL 94 % (94-98); PO2 ARTERIAL 78 mmHg (83-108)
[2023-06-20] MEDS: Lidocaine 2% Jelly 10 ML Urojet MUCMEM ONE (04:30)
[2023-06-20 04:32] LABS: APPEARANCE,URINE SLIGHTLY CLOUDY (CLEAR); BILIRUBIN,URINE NEGATIVE (NEGATIVE); COLOR,URINE YELLOW (YELLOW); GLUCOSE,URINE 250 (NEGATIVE); KETONES,URINE NEGATIVE (NEGATIVE); LEUKOCYTE ESTERASE,URINE NEGATIVE (NEGATIVE); NITRITE,URINE NEGATIVE (NEGATIVE); OCCULT BLOOD,URINE MODERATE (NEGATIVE); PROTEIN,URINE 100 (NEGATIVE)
[2023-06-20 04:41] LABS: AMORPHOUS SEDIMENT,URINE FEW /HPF (NOT SEEN); BACTERIA,URINE FEW /HPF (0-FEW/HPF); EPITHELIAL CELLS,URINE FEW /HPF (NOT SEEN); MUCUS,URINE MODERATE /LPF (NOT SEEN); RBC,URINE 20-30 /HPF (0-5); WBC,URINE 0-5 /HPF (0-5/HPF)
[2023-06-20] MEDS ORDERED: Ondansetron 4 MG Tab.DIS PO PRN (05:23)
[2023-06-20] MEDS ORDERED: Albuterol 6.7 GM Inhaler INH PRN (05:29)
[2023-06-20] MEDS ORDERED: Polyethylene Glycol 3350 Powder 17 GM Packet PO PRN (05:29)
[2023-06-20] MEDS ORDERED: Albuterol/Ipratropium 3.0-0.5 MG/3 ML Neb Soln NEB PRN (06:09)
[2023-06-20] MEDS: Levofloxacin 500 MG Tab PO SCH ×2 (08:32→11:19)
[2023-06-20] MEDS ORDERED: Enoxaparin 30 MG/0.3 ML Syringe SUBCUT SCH (09:00)
[2023-06-20] MEDS ORDERED: guaiFENesin 600 MG Tab.ER PO PRN (10:00)
[2023-06-20] MEDS ORDERED: Acetaminophen 325 MG Tab PO PRN (10:55)
[2023-06-20] MEDS ORDERED: HYDROmorphone 0.5 MG/0.5 ML Syringe IVPUSH PRN (10:56)
[2023-06-20] MEDS ORDERED: Acetaminophen/HYDROcodone 325-5 MG Tab PO PRN (10:56)
[2023-06-20] MEDS ORDERED: Naloxone 2 MG/2 ML Syringe IVPUSH PRN (10:56)
[2023-06-20] MEDS: Enoxaparin 40 MG/0.4 ML Syringe SUBCUT SCH (11:05)
[2023-06-20] MEDS: Fluticasone NASAL Spray 16 GM Bottle NASBOTH SCH (11:05)
[2023-06-20] MEDS: traMADol 50 MG Tab PO PRN (11:06)
[2023-06-20] MEDS: Sertraline 50 MG Tab PO SCH (11:07)
[2023-06-20] MEDS: Loratadine 10 MG Tab PO SCH (11:07)
[2023-06-20] MEDS: guaiFENesin 600 MG Tab.ER PO SCH (11:07)
[2023-06-20] MEDS: Theophylline 300 MG Tab.ER PO SCH (11:08)
[2023-06-20] MEDS: Finasteride 5 MG Tab PO SCH (11:08)
[2023-06-20] MEDS: atorvaSTATin 20 MG Tab PO SCH (11:08)
[2023-06-20] MEDS: Potassium Chloride 10 MEQ Tab.ER PO ONE ×2 (11:09→11:17)
[2023-06-20] MEDS: Clopidogrel 75 MG Tab PO SCH ×2 (11:09→11:18)
[2023-06-20] MEDS: acetaZOLAMIDE 250 MG Tab PO SCH (11:09)
[2023-06-20] MEDS: Omeprazole 20 MG Cap.CR PO SCH (11:09)
[2023-06-20] MEDS: Oxybutynin 5 MG Tab PO ONE (11:10)
[2023-06-20] MEDS: Isosorbide Mononitrate 30 MG Tab.ER PO SCH ×2 (11:14→11:18)
[2023-06-20] MEDS: Metoprolol Succinate 25 MG Tab.ER PO SCH (11:15)
[2023-06-20] MEDS: acetaZOLAMIDE 500 MG Vial IVPUSH ONE (11:17)
[2023-06-20] MEDS: Formoterol/Mometasone 200-5 MCG 8.8 GM Inhaler IH SCH (20:37)
[2023-06-20] MEDS: Oxybutynin 5 MG Tab PO SCH (20:38)
[2023-06-20] MEDS: Melatonin 3 MG Tab PO SCH (20:39)
[2023-06-20] MEDS: Latanoprost 0.005% Ophth Soln 2.5 ML Bottle EYEBOTH SCH (20:40)
[2023-06-21 06:39] LABS: ALBUMIN 2.3 g/dL (3.4-5.0); ANION GAP 1.6 mEq/L (7-13); BILIRUBIN TOTAL 0.4 mg/dL (0.2-1.0); BUN/CREATININE RATIO 21.8 (No establ ref range); C-REACTIVE PROTEIN 2.93 ng/dL (<=0.50); CALCIUM 7.8 mg/dL (8.5-10.1); CREATININE 0.78 mg/dL (0.70-1.30); EST CRCL DRUG DOSING (CG) 66.57 mL/min; MAGNESIUM 1.2 mg/dL (1.8-2.4); POTASSIUM,K 3.6 mmol/L (3.5-5.1); PROTEIN TOTAL,TP 5.4 g/dL (6.4-8.2)
[2023-06-21 06:48] LABS: A/G RATIO 0.74
[2023-06-21] MEDS: Arformoterol 15 MCG/2 ML Neb Soln INH SCH (07:10)
[2023-06-21 07:13] LABS: HEMATOCRIT 33.7 % (40.0-54.0); HEMOGLOBIN 10.1 g/dL (14.0-18.0); MEAN CORPUSCULAR HEMOGLOBIN 30.7 pg (27.0-34.0); MEAN CORPUSCULAR VOLUME 102.4 fL (80-100); RED BLOOD CELL COUNT 3.29 10^6/uL (4.6-6.2); WHITE BLOOD CELL COUNT,WBC 6.4 10^3/uL (5.0-10.0)
[2023-06-21] MEDS: Magnesium Sulfate/Water 2 GM in Premix Bag 1 BAG IV ONE (07:35)
[2023-06-21] MEDS: Furosemide 20 MG Tab PO SCH (08:20)
[2023-06-21] MEDS: Midodrine 5 MG Tab PO ONE (09:41)
[2023-06-21] MEDS ORDERED: Midodrine 5 MG Tab PO PRN (14:00)
[2023-06-22 12:21] VITALS: BP 112/56; PULSE 80
== END 2023-06-22 13:47 | disposition home or self-care (01) ==
LOC: DL.ED 01:03 → DL.MS 04:36 → UNDOADMOB 04:36 → DL.ED 04:54
PROVIDERS: ADMIT Emergency Medicine; ATTEND Internal Medicine
DX: R10.9 Unspecified abdominal pain (principal); N32.89 Other specified disorders of bladder; R79.89 Other specified abnormal findings of blood chemistry; J18.9 Pneumonia, unspecified organism; J44.9 Chronic obstructive pulmonary disease, unspecified; E87.6 Hypokalemia; E83.42 Hypomagnesemia; E78.00 Pure hypercholesterolemia, unspecified; I11.0 Hypertensive heart disease with heart failure; E50.9 Vitamin A deficiency, unspecified; K21.9 Gastro-esophageal reflux disease without esophagitis; E11.9 Type 2 diabetes mellitus without complications; D69.6 Thrombocytopenia, unspecified; Z87.891 Personal history of nicotine dependence; Z98.890 Other specified postprocedural states; Z79.899 Other long term (current) drug therapy; Z88.5 Allergy status to narcotic agent
CPT/HCPCS: 36415; 36600; 71045; 80053; 81001; 82803; 83605; 83690; 83735; 83880; 84145; 84484; 85025; 85027; 86140; 93005; 93010; 94640; 96361; 96365; 96366; 96372; 96374; 96375; 97161-GP; 97165-GO; 99284; 99285-25; A9270-GY; C1758; G0378; J1650; J1885; J3475; J3490; J7030; J7620-GY